=== PATIENT | female | born 1980 | race American Indian/Alaskan Native ===

== ENCOUNTER 2022-05-04 12:47 | Inpatient (IN) | payer MEDICAID ==
[~2022-05-04 12:47] MED LIST: miSOPROStol 200 MCG TAB VG ONE
[2022-05-04] MEDS ORDERED: LACTATED RINGERS 1,000 ML IV ONE (15:15)
[2022-05-04] MEDS ORDERED: fentaNYL 100 MCG/2 ML INJ IV ONE (16:00)
[2022-05-04] MEDS: LACTATED RINGERS 1,000 ML IV SCH ×2 (16:50→19:21)
[2022-05-04 18:18] LABS: Bilirubin,Urine NEG (Negative); Blood,Urine NEG (Negative); Color,Urine Amber (Yellow); Protein,Urine <15 mg/dL mg/dL (Negative)
[2022-05-04 18:20] LABS: Mucus,Urine FEW /HPF
[2022-05-04 18:21] LABS: Basophils % (Auto) 0.3 % (0.0-1.8); Eosinophils % (Auto) 0.6 % (0.0-4.3); Hematocrit 37.1 % (30.3-42.9); Mean Corpuscular HGB Conc 32 % (30-34); Mean Corpuscular Volume 85 fl (79-97); Monocytes # (Auto) 0.4 K/mm3 (0.0-0.8); Platelet Count 207 K/mm3 (140-440); Red Blood Count 4.39 M/mm3 (3.65-5.03); Red Cell Distribution Width 14.1 % (13.2-15.2)
[2022-05-04] MEDS ORDERED: ACETAMINOPHEN 325 MG TAB PO PRN (18:35)
[2022-05-04] MEDS ORDERED: fentaNYL 100 MCG/2 ML INJ IV PRN (18:35)
[2022-05-04] MEDS ORDERED: LIDOCAINE (2%) 20 MG/1 ML VIAL 20 ML MDV INFILTRATI ONE (18:35)
[2022-05-04] MEDS ORDERED: miSOPROStol 200 MCG TAB PR PRN (18:35)
[2022-05-04] MEDS ORDERED: TERBUTALINE 1 MG/1 ML INJ SUB-Q ONE (19:01)
--- NOTE | 2022-05-04 20:27 | History and Physical Report ---
History of Present Illness Date of examination: 05/04/22 Date of admission: 05/04/22 18:47 Chief complaint: contractions History of present illness: Pt is a 41 year old KAMALJIT 05/23/22 at 37w2d who presents with regular painful contractions since this morning. She received IV fluids and her contractions have not ceased. She has had care at [facility] since 5 wks complicated by three prior sections, advanced maternal age, abnormal pap smear, anemia, glucose intolerance, Lupus, fibroids and silent carrier for alpha thalassemia. She is GBS negative. She does not desire future fertility. section called at 7 pm, but no program technician available in until 11 pm. 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 smear, fibroids Family/Genetic History: hypertension Social history: no significant social history - Obstetrical History Expected Date of Delivery: 05/23/22 Actual Gestation: 37 Week(s) 2 Day(s) : 5 Para: 3 Hx # Term Pregnancies: 3 Number of Pregnancies: 0 Spontaneous Abortions: 1 Induced : 0 Number of Living Children: 3 Medications and Allergies Allergies Allergy/AdvReac Type Severity Reaction Status Date / Time No Known Allergies Allergy Unverified 05/04/22 13:22 Active Meds: Active Medications Acetaminophen (Acetaminophen 325 Mg Tab) 650 mg PO Q4H PRN PRN Reason: Pain, Mild (1-3) Fentanyl (Fentanyl 100 Mcg/2 Ml Inj) 100 mcg IV Q2H PRN PRN Reason: Pain,Severe (7-10) LABOR PAIN Lactated Ringer's (Lactated Ringers) 1,000 mls @ 125 mls/hr IV DIRECT STEFAN Last Admin: 05/04/22 19:21 Dose: 125 mls/hr Misoprostol (Misoprostol 200 Mcg Tab) 800 mcg DE ONCE PRN PRN Reason: Uterine Bleeding Review of Systems All systems: negative - Vital Signs Vital signs: Vital Signs Pulse Pulse Ox 83 100 05/04/22 13:11 05/04/22 13:11 Temp Pulse Resp BP Pulse Ox 98.4 F 89 16 104/50 99 05/04/22 14:00 05/04/22 20:25 05/04/22 14:50 05/04/22 20:10 05/04/22 20:25 - Physical Exam Breasts: Positive: deferred Abdomen: Positive: soft (gravid ) Uterus: Positive: enlarged (gravid ) Extremities: Positive: normal - Obstetrical FHR: auscultation normal Uterine Contraction Monitor Mode: External Cervical Dilatation: 0.5 Cervical Effacement Percentage: 50 station: -3 Uterine Contraction Pattern: Regular Uterine Tone Measurement Phase: Resting Uterine Contraction Intensity: Strong/Firm Results Result Diagrams: 05/04/22 Unknown Abnormal lab results 05/04/22 Range/Units Unknown MCH 27 L (28-32) pg Lymph # (Auto) 1.0 L (1.2-5.4) K/mm3 Seg Neutrophils % 76.1 H (40.0-70.0) % All other labs normal. Assessment and Plan A: IUP at 37w2d Latent Labor Previous x 3 Undesired Fertility Advanced maternal age Abnormal pap smear Anemia Glucose intolerance Lupus Fibroids Silent carrier for alpha thalassemia GBS negative P: Proceed with repeat section and bilateral tubal ligation when staffing available
[2022-05-04] MEDS ORDERED: LACTATED RINGERS 1,000 ML IV SCH (20:45)
[2022-05-04] MEDS ORDERED: OXYTOCIN DRIP 30 UNITS/500 ML BAG IV SCH (21:00)
[2022-05-04] MEDS ORDERED: METOCLOPRAMIDE 10 MG/2 ML INJ IV ONE (22:30)
[2022-05-04] MEDS ORDERED: FAMOTIDINE 20 MG/2 ML INJ IV ONE (22:30)
[2022-05-04] MEDS ORDERED: ceFAZolin/Water 2 GM/20 ML 2 GM/20 ML SYRINGE IV NR (22:30)
[2022-05-04] MEDS ORDERED: BICITRA ORAL LIQD 30ML PO ONE (22:30)
[2022-05-04] MEDS ORDERED: ePHEDrine SULFATE 50 MG/1 ML INJ ONE (22:49)
[2022-05-04] MEDS ORDERED: WATER FOR IRRIG STERILE 1,500 ML BOTTLE IR ONE (23:03)
[2022-05-04] MEDS ORDERED: SODIUM CHLORIDE 0.9% IRR 1,500 ML BOTTLE IR ONE (23:03)
[2022-05-05] MEDS ORDERED: ONDANSETRON 4 MG/2 ML INJ ONE (00:03)
[2022-05-05] MEDS ORDERED: SODIUM CHLORIDE 0.9% 100 ML ONE (00:03)
[2022-05-05] MEDS ORDERED: BUPIVACAINE/PF (0.5%) 5 MG/1 ML 30 ML VIAL INFILTRATI ONE (00:03)
[2022-05-05] MEDS ORDERED: TRANEXAMIC ACID 1,000 MG/10 ML ONE (00:03)
[2022-05-05] MEDS ORDERED: METHYLERGONOVINE MALEATE 0.2 MG/ML VIAL IM ONE (00:04)
--- NOTE | 2022-05-05 01:01 | Procedure Note ---
OB Delivery Note - Delivery Date of Delivery: 05/05/22 Surgeon: TATI SCHMIDT Estimated blood loss: other (1200 mL) - Section Preop diagnosis: repeat , desires sterilization Postop diagnosis: same section procedure: section, repeat low transverse, bilateral tubal ligation Disposition: PACU Complications: intra-op hemorrhage, uterine atony Narrative: Please see operative report - A at 1 minute: 8 at 5 minutes: 9 Gender: Female (2890g (6lb 6oz) @ 2323 pm)
--- NOTE | 2022-05-05 01:01 | Operative Report ---
Operative Report Operative Report: Date of procedure: May 04, 2022 Preoperative diagnosis: 1) IUP at 37w2d 2) Latent Labor 3) Previous x 3 4) Undesired Fertility Postoperative diagnosis: Same 5) Uterine Atony Procedure: 1) Repeat low transverse section 2) Bilateral tubal ligation via modified Lacona method Surgeon: Kailee Ayala M.D. Anesthesia: Regional Findings: 1) Viable female , Apgars 8 and 9, weight 2890, (6lb 6oz) in cephalic presentation. Meconium. 2) Normal appearing ovaries and tubes Estimated blood loss: 1200 mL Urine output: 100 mL, clear at the end of the procedure Drains: Greer to gravity Specimens: Tubal segments to pathology Medications: Methergine 0.2 mg IM, Misoprostol 800 mcg per rectum Complications: Counts correct x 3 Disposition: Stable to PACU Indication for procedure: Pt is a 34 year old at 37w2d with three prior sections who presents in latent labor. The decision was made to proceed with repeat section and bilateral tubal ligation. Operation in Detail: After the risks, benefits, alternatives and complications were explained to the patient she gave informed consent for the procedure. She was subsequently taken to the operating room where regional anesthesia was noted to be adequate. SCDs were noted to be in place and functioning. She was then placed in the dorsal supine position with leftward tilt and prepped and draped in a normal sterile fashion. heart tones were noted prior to incision. A timeout was performed. A Pfannenstiel skin incision was made with the knife and carried down to the layer of the fascia with the Bovie. The fascia was incised in the midline and the fascial incision was extended bilaterally with the Bovie. The fascial incision was then stretched. The rectus muscles were then in the midline and partially transected for adequate visualization. The peritoneum was then entered sharply between two Gracie clamps. The peritoneal incision was extended with good visualization of the bladder. The peritoneal incision was then stretched. An Igor retractor was placed. The bladder blade was placed. The vesicouterine peritoneum was grasped with smooth pick ups and incised with Metzenbaum scissors. A bladder flap was created and the bladder blade was replaced. A transverse incision was made with a knife in the lower uterine segment. The hysterotomy was stretched. The head was delivered without difficulty followed by delivery of the shoulders and body. was bulb s uctioned at delivery. The cord was clamped and cut and the was handed to NICU staff in attendance. Cord blood was collected. The placenta was then delivered manually. The uterus was exteriorized and cleared of all clots and debris. The hysterotomy was then reapproximated with 0 Monocryl in a running locked fashion. A second 0 Monocryl suture was used in an imbricated fashion. Multiple figure of eights of 2-0 chromic and 0 Vicryl were used to obtain hemostasis in the cernter of the hysterotomy. The hysterotomy was inspected and hemostasis was noted. Attention was then turned to the tubal ligation. The left tube was identified, grasped with a sharon and followed out to the fimbriae. The tube was suture ligated via a modified Lacona method using 0 plain suture. The intervening tubal segment was sent to pathology. The right tube was then identified, followed out to the fimbriae and suture ligated via a modified Lacona method using 0 plain suture. Hemostasis was noted. The gutters were irrigated and cleared of all clots and debris. The hysterotomy was again inspected and noted to be hemostatic. Surgicel was placed over the hysterotomy. The uterus was returned to the peritoneal cavity. The Igor retractor was removed. The peritoneum was reapproximated with 0 Monocryl in a running fashion incorporating the rectus muscles. Surgicel was placed over the rectus muscles. The fascia was reapproximated with 0-Vicryl in a running fashion. The skin was reapproximated with 4-0 Monocryl in a subcuticular fashion. The incision was then covered with a pressure dressing. The procedure was then ended. The patient tolerated the procedure well and was taken to the PACU in stable condition. All instrument, lap, and needle counts were correct 3.
--- NOTE | 2022-05-05 01:58 | Anesthesia Day of Surgery ---
Anesthesia Day of Surgery - Day of Surgery Patient Examined: Yes Patient H&P Reviewed: Yes Patient is NPO: Yes
--- NOTE | 2022-05-05 01:58 | Anesthesia Consultation ---
Anesthesia Consult and Med Hx Date of service: 05/04/22 - Airway Anesthetic Teeth Evaluation: Good ROM Head & Neck: Adequate Mental/Hyoid Distance: Adequate Mallampati Class: Class II Intubation Access Assessment: Good - Pulmonary Exam CTA: Yes - Cardiac Exam Cardiac Exam: RRR - Pre-Operative Health Status ASA Pre-Surgery Classification: ASA2 Proposed Anesthetic Plan: Spinal - Pulmonary Hx Asthma: No COPD: No Hx Pneumonia: No - Cardiovascular System Hx Hypertension: No - Central Nervous System Hx Seizures: No Hx Psychiatric Problems: No - Endocrine Hx Renal Disease: No Hx End Stage Renal Disease: No Hx Hypothyroidism: No Hx Hyperthyroidism: No - Hematic Hx Anemia: No Hx Sickle Cell Disease: No - Other Systems Hx Alcohol Use: No
--- NOTE | 2022-05-05 02:01 | Progress Note ---
Spinal Anesthesia Block - Spinal Anesthesia Block Performed by:: ELIANA CALDERON Procedure: Spinal anesthesia block is being performed for []. H&P, labs have been reviewed. Patient's questions and concerns have been answered. Informed consent has been performed. Timeout has was performed. Patient in sitting position on side of bed. Sterile prep and drape was performed. 3 mL 1% lidocaine skin wheal at L [3]-L [4]. Needle introducer advanced. 24-gauge spinal needle advanced, [+] CSF [-] blood. [-] Spinal dose was given. All needles removed. Patient tolerated procedure well.
--- NOTE | 2022-05-05 02:01 | Post Anesthesia Evaluation ---
- Post Anesthesia Evaluation Patient Participated: Yes Airway Patent: Yes Stable Respiratory Function: Yes Nausea/Vomiting: No Temp > 96.8F: Yes Pain Manageable: Yes Adequeate Hydration: Yes Anesthesia Complications: No Block Receding Appropriately: Yes
[2022-05-05] MEDS ORDERED: LANOLIN/ZINC/DIMETHICONE (LANSINOH) 7 GM TP PRN (03:08)
[2022-05-05] MEDS ORDERED: NALOXONE 0.4 MG/1 ML INJ IV PRN (03:08)
[2022-05-05] MEDS ORDERED: WITCH HAZEL/ GLYCERIN PAD TP PRN (03:08)
[2022-05-05] MEDS ORDERED: MORPHINE 4 MG/1 ML INJ IV PRN (03:08)
[2022-05-05] MEDS ORDERED: MORPHINE 2 MG/1 ML INJ IV PRN (03:08)
[2022-05-05] MEDS ORDERED: D5W/LACTATED RINGERS 1,000 ML IV SCH (03:08)
[2022-05-05] MEDS ORDERED: oxyCODONE /ACETAMINOPHEN 5-325MG TAB PO PRN (03:08)
[2022-05-05] MEDS ORDERED: OXYTOCIN DRIP 30 UNITS/500 ML BAG IV SCH (03:08)
[2022-05-05] MEDS ORDERED: SIMETHICONE 80 MG CHEW TAB PO PRN (03:08)
[2022-05-05] MEDS ORDERED: ONDANSETRON 4 MG/2 ML INJ IV PRN (03:08)
[2022-05-05] MEDS: IBUPROFEN 800 MG TAB PO PRN (06:00)
[2022-05-05] MEDS ORDERED: ceFAZolin/NS 1 GM/50 ML 1 GM/50 ML BAG IV SCH (06:30)
[2022-05-05] MEDS: ceFAZolin/NS 1 GM/50 ML 1 GM/50 ML BAG IV SCH ×2 (10:18→17:59)
[2022-05-05] MEDS: KETOROLAC 30 MG/1 ML INJ IV SCH ×2 (12:27→17:59)
[2022-05-05 16:48] LABS: Hematocrit 36.4 % (30.3-42.9); Hemoglobin 12.1 gm/dl (10.1-14.3)
[2022-05-06] MEDS ORDERED: MEASLES, MUMPS & RUBELLA 12,500 UNIT/0.5 ML VACCINE SUB-Q ONE (01:28)
[2022-05-06] MEDS ORDERED: TETANUS,DIPH,PERTUSS(ACELL) VACCINE 0.5 ML SYRINGE IM ONE (06:00)
[2022-05-06] MEDS: IBUPROFEN 800 MG TAB PO PRN ×2 (06:58→18:15)
--- NOTE | 2022-05-06 09:45 | Progress Note ---
Assessment and Plan POD 1 s/p rcs. Pt doing well. in NICU. Pt is ok for discharge on tomorrow if able to go. Encourage ambulation. Continue routine care. Subjective - Subjective Date of service: 05/06/22 Patient reports: appetite normal, voiding normally, pain well controlled, flatus, ambulating normally : in NICU Objective - Vital Signs Latest vital signs: Vital Signs Temp Pulse Resp BP BP Pulse Ox Pulse Ox 05/06/22 08:10 98 05/06/22 08:05 97.9 F 55 L 20 107/54 99 05/06/22 06:58 18 05/06/22 02:15 96.8 F L 59 L 20 111/62 99 05/05/22 22:53 18 05/05/22 21:44 97.9 F 59 L 18 107/56 99 05/05/22 20:10 98 05/05/22 16:21 98.0 F 61 20 123/60 100 05/05/22 12:08 97.9 F 65 20 118/65 100 Intake and Output 05/05/22 05/06/22 05/06/22 22:59 06:59 14:59 Intake Total 240 480 320 Output Total 300 Balance -60 480 320 Intake: Oral 240 320 Intake, Free Water 480 Output: Urine 300 Void 300 Other: Total, Intake Amount 240 320 Total, Output Amount 300 # Voids Void 2 1 - Exam Cardiovascular: Present: Regular rate, Normal S1, Normal S2 Lungs: Present: Clear to auscultation, Normal air movement Abdomen: Present: normal appearance, soft, normal bowel sounds Uterus: Present: normal, firm Extremities: Present: normal Incision: Present: normal, dry, intact, dressed
--- NOTE | 2022-05-06 09:49 | Discharge Summary ---
Providers - Providers Date of Admission: 05/04/22 20:43 Date of discharge: 05/07/22 Attending physician: TATI SCHMIDT 05/05/22 03:08 Consult to Chemical Sales Representative [CONS] Routine Reason For Exam: Primary care physician: REBECCA SOLORZANO Hospitalization Reason for admission: section Delivery: Procedure: repeat low transverse Incision: normal, dry, intact, dressed Viola baby: female Condition at discharge: Good Disposition: 30 STILL A PATIENT Plan - Discharge Medications Prescriptions: Docusate Sodium [Colace] 100 mg PO BID #60 capsule Ferrous Sulfate [Feosol 325 MG tab] 325 mg PO BID #60 tablet Ibuprofen [Motrin 800 MG tab] 800 mg PO Q6H PRN #40 tablet PRN Reason: Pain, Moderate (4-6) oxyCODONE /ACETAMINOPHEN [Percocet 5/325 mg] 2 tab PO Q4H PRN #40 tablet PRN Reason: Pain, Moderate (4-6) - Provider Discharge Summary Additional instructions: [] Smoking cessation referral if applicable(refer to patient education folder for contact #) [] Refer to [facility] Booklet Call your doctor immediately for: * Fever > 100.5 * Heavy vaginal bleeding ( >1 pad per hour) * Severe persistent headache * Shortness of breath * Reddened, hot, painful area to leg or breast * Drainage or odor from incision. * Keep incision clean and dry at all times and follow doctor's instructions regarding bathing/showering - Follow up plan Follow up: TATI SCHMIDT MD [Staff Physician] - 14 Days
--- NOTE | 2022-05-06 14:14 | Post Anesthesia Evaluation ---
- Post Anesthesia Evaluation Patient Participated: Yes Airway Patent: Yes Stable Respiratory Function: Yes Nausea/Vomiting: No Temp > 96.8F: Yes Pain Manageable: Yes Adequeate Hydration: Yes Anesthesia Complications: No Block Receding Appropriately: Yes Patient on Ventilator: No
[2022-05-07 17:12] VITALS: BP 125/44
== END 2022-05-07 17:25 | disposition home or self-care (01) | DRG 765 ==
LOC: TRG 12:47 → APU 12:48 → TRG 18:43 → EDBD 18:47 → UNDOADMIN 18:47 → APU 18:47 → EDBD 20:43 → APU 20:43 → LD 05-05 03:11 → OB 05-05 07:41
PROVIDERS: ADMIT Obstetrics & Gynecology; ATTEND Obstetrics & Gynecology
PROC: 10D00Z1 Extraction of Products of Conception, Low, Open Approach (ICD-10-PCS; principal; 2022-05-05)
PROC: 0UB70ZZ Excision of Bilateral Fallopian Tubes, Open Approach (ICD-10-PCS; 2022-05-05)
PROC: 3E0234Z Introduction of Serum, Toxoid and Vaccine into Muscle, Percutaneous Approach (ICD-10-PCS; 2022-05-06)
DX: O99.02 Anemia complicating childbirth (principal); O72.1 Other immediate postpartum hemorrhage; Z20.822 Contact with and (suspected) exposure to COVID-19; Z23 Encounter for immunization; Z37.0 Single live birth; M32.9 Systemic lupus erythematosus, unspecified; Z3A.37 37 weeks gestation of pregnancy; O99.814 Abnormal glucose complicating childbirth; O34.13 Maternal care for benign tumor of corpus uteri, third trimester; D25.9 Leiomyoma of uterus, unspecified; O77.0 Labor and delivery complicated by meconium in amniotic fluid; O34.211 Maternal care for low transverse scar from previous cesarean delivery; D56.0 Alpha thalassemia
CPT/HCPCS: 31720; 36415; 81001; 85014; 85018; 85025; 86850; 86900; 86901; 88302; 96366; G0378; J3490; J7060; J7121; J0690; J1885; J2405; J2765; J3010; J3105; J7120; U0003

== ENCOUNTER 2022-05-14 09:32 | Inpatient (IN) | payer MEDICAID ==
[2022-05-14] MEDS ORDERED: SODIUM CHLORIDE 0.9% 1000 ML 1,000 ML IV ONE (10:18)
[2022-05-14 10:52] LABS: Bilirubin,Urine NEG (Negative); Blood,Urine MOD (Negative); Color,Urine Yellow (Yellow); Protein,Urine <15 mg/dL mg/dL (Negative); Urobilinogen,Urine < 2.0 mg/dL (<2.0)
[2022-05-14 11:01] LABS: Mucus,Urine FEW /HPF
[2022-05-14 11:05] LABS: INR 1.04 (0.87-1.13)
[2022-05-14 11:12] LABS: Blood Urea Nitrogen 10 mg/dL (7-17); Calcium 8.4 mg/dL (8.4-10.2); Hemolysis Index 47
[2022-05-14 11:16] LABS: BUN/Creatinine Ratio 17
[2022-05-14 11:32] LABS: Basophils % (Auto) 0.4 % (0.0-1.8); Eosinophils % (Auto) 0.4 % (0.0-4.3); Hematocrit 28.8 % (30.3-42.9); Lymphocytes # (Auto) 0.8 K/mm3 (1.2-5.4); Lymphocytes % (Auto) 8.6 % (13.4-35.0); Mean Corpuscular HGB Conc 31 % (30-34); Mean Corpuscular Volume 85 fl (79-97); Monocytes # (Auto) 0.3 K/mm3 (0.0-0.8); Monocytes % (Auto) 3.5 % (0.0-7.3); Platelet Count 227 K/mm3 (140-440)
--- NOTE | 2022-05-14 12:15 | Emergency Department Report ---
ED General Adult HPI - General Chief complaint: Vaginal Bleeding Stated complaint: DELIVERED 10 DAYS AGO/VAGINAL BLEEDING PUI?: No Time Seen by Provider: 05/14/22 10:11 Source: patient, EMS Mode of arrival: Stretcher Limitations: No Limitations - History of Present Illness Initial comments: PT ARRIVING FROM HOME, REPORTS ABNORMAL VAG BLEEDING THAT STARTED THIS MORNING. X10 DAYS. , NO COMPLICATIONS. -: Sudden, hour(s) Location: pelvis, genitals Associated Symptoms: malaise, nausea/vomiting, weakness. denies: denies other symptoms, confusion, chest pain, cough - Related Data Previous Rx's Medication Instructions Recorded Last Taken Type Docusate Sodium [Colace] 100 mg PO BID #60 capsule 05/06/22 Unknown Rx Ferrous Sulfate [Feosol 325 MG tab] 325 mg PO BID #60 tablet 05/06/22 Unknown Rx Ibuprofen [Motrin 800 MG tab] 800 mg PO Q6H PRN #40 tablet 05/06/22 Unknown Rx oxyCODONE /ACETAMINOPHEN [Percocet 2 tab PO Q4H PRN #40 tablet 05/06/22 Unknown Rx 5/325 mg] Allergies Allergy/AdvReac Type Severity Reaction Status Date / Time No Known Allergies Allergy Verified 05/14/22 09:54 ED Review of Systems ROS: Stated complaint: DELIVERED 10 DAYS AGO/VAGINAL BLEEDING Other details as noted in HPI Constitutional: denies: chills, fever Eyes: denies: eye pain, eye discharge, vision change ENT: denies: ear pain, throat pain Respiratory: denies: cough, shortness of breath, wheezing Cardiovascular: denies: chest pain, palpitations Endocrine: no symptoms reported Gastrointestinal: denies: abdominal pain, nausea, diarrhea Genitourinary: denies: urgency, dysuria, discharge Musculoskeletal: denies: back pain, joint swelling, arthralgia Skin: denies: rash, lesions Neurological: denies: headache, weakness, paresthesias Psychiatric: denies: anxiety, depression Hematological/Lymphatic: denies: easy bleeding, easy bruising ED Past Medical Hx - Past Medical History Previous Medical History?: Yes Hx Hypertension: No Hx Congestive Heart Failure: No Hx Diabetes: No Hx Deep Vein Thrombosis: No Hx Renal Disease: No Hx Sickle Cell Disease: No Hx Seizures: No Hx Asthma: No Hx COPD: No Hx HIV: No Additional medical history: Lupus - Surgical History Past Surgical History?: Yes Additional Surgical History: csection - Social History Smoking Status: Never Smoker Substance Use Type: None - Medications Home Medications: Home Medications Medication Instructions Recorded Confirmed Last Taken Type Docusate Sodium [Colace] 100 mg PO BID #60 capsule 05/06/22 Unknown Rx Ferrous Sulfate [Feosol 325 MG tab] 325 mg PO BID #60 tablet 05/06/22 Unknown Rx Ibuprofen [Motrin 800 MG tab] 800 mg PO Q6H PRN #40 tablet 05/06/22 Unknown Rx oxyCODONE /ACETAMINOPHEN [Percocet 2 tab PO Q4H PRN #40 tablet 05/06/22 Unknown Rx 5/325 mg] ED Physical Exam - General Limitations: No Limitations General appearance: anxious, in distress - Head Head exam: Present: atraumatic, normocephalic - Eye Eye exam: Present: normal appearance - ENT ENT exam: Present: mucous membranes moist - Neck Neck exam: Present: normal inspection - Respiratory Respiratory exam: Present: normal lung sounds bilaterally. Absent: respiratory distress - Cardiovascular Cardiovascular Exam: Present: normal rhythm, tachycardia. Absent: systolic mu rmur, diastolic murmur, rubs, gallop - GI/Abdominal GI/Abdominal exam: Present: tenderness, normal bowel sounds - Speculum exam: Present: vaginal bleeding, tissue - Extremities Exam Extremities exam: Present: normal inspection - Back Exam Back exam: Present: normal inspection - Neurological Exam Neurological exam: Present: alert, oriented X3 - Psychiatric Psychiatric exam: Present: normal affect, normal mood - Skin Skin exam: Present: warm, dry, intact, normal color. Absent: rash ED Course Vital Signs 05/14/22 05/14/22 05/14/22 09:53 10:22 10:24 Temperature 98.2 F Pulse Rate 98 H 73 Respiratory 18 22 22 Rate Blood Pressure Blood Pressure 116/74 [Left] O2 Sat by Pulse 98 98 Oximetry 05/14/22 05/14/22 05/14/22 10:31 10:46 11:17 Temperature Pulse Rate 71 79 Respiratory 20 16 Rate Blood Pressure 104/38 104/38 99/40 Blood Pressure [Left] O2 Sat by Pulse 91 Oximetry 05/14/22 05/14/22 11:31 11:45 Temperature Pulse Rate 85 100 H Respiratory 25 H 25 H Rate Blood Pressure 106/32 106/32 Blood Pressure [Left] O2 Sat by Pulse 100 100 Oximetry ED Medical Decision Making - Lab Data Result diagrams: 05/14/22 10:37 05/14/22 10:37 - Radiology Data Radiology results: report reviewed, image reviewed - Medical Decision Making 2 Large IV bore paced fluids running , external exam showed active bleeding , packed with 4 by $ , US shwoed enlarged uterus, spoke with dr Foster, came to bedside will transfuse and take her to OR Critical care attestation.: If time is entered above; I have spent that time in minutes in the direct care of this critically ill patient, excluding procedure time. ED Disposition Clinical Impression: bleeding, Hypotension Disposition: ADMITTED INPATIENT Is pt being admited?: Yes Does the pt Need Aspirin: No Condition: Fair Referrals: PRIMARY CARE, [Primary Care Provider] - 3-5 Days
[2022-05-14] MEDS ORDERED: ceFAZolin/Water 2 GM/20 ML 2 GM/20 ML SYRINGE IV NR (13:00)
--- NOTE | 2022-05-14 13:09 | History and Physical Report ---
History of Present Illness Date of examination: 05/14/22 Chief complaint: vaginal bleeding History of present illness: Pt is a 41 year old female POD#10 s/p repeat section and bilateral tubal ligation on 05/04/22, discharge home on POD #3 with an uncomplicated postoperative course who reports she was doing well at home until early this morning when she woke from her sleep in a pool of blood. She denies heavy lifting or deviating from her postoperative instructions. She was brought to the ED by EMS. The ED physician notes heavy vaginal bleeding. He reports clearing out the clots, and packing the vagina,as well as placing a thompson catheter. She had a pelvic ultrasound that was suspicious for retained products. 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, fibroids Family/Genetic History: hypertension Social history: no significant social history - Obstetrical History : 5 Para: 4 Hx # Term Pregnancies: 4 Number of Pregnancies: 0 Spontaneous Abortions: 1 Induced : 0 Number of Living Children: 4 Medications and Allergies Allergies Allergy/AdvReac Type Severity Reaction Status Date / Time No Known Allergies Allergy Verified 05/14/22 09:54 Home Medications Medication Instructions Recorded Confirmed Last Taken Type Docusate Sodium [Colace] 100 mg PO BID #60 capsule 05/06/22 Unknown Rx Ferrous Sulfate [Feosol 325 MG tab] 325 mg PO BID #60 tablet 05/06/22 Unknown Rx Ibuprofen [Motrin 800 MG tab] 800 mg PO Q6H PRN #40 tablet 05/06/22 Unknown Rx oxyCODONE /ACETAMINOPHEN [Percocet 2 tab PO Q4H PRN #40 tablet 05/06/22 Unknown Rx 5/325 mg] Active Meds: Active Medications Lactated Ringer's (Lactated Ringers) 1,000 mls @ 75 mls/hr IV DIRECT STEFAN Cefazolin Sodium (Ancef/Sterile Water 2 Gm/20 Ml) 2 gm in 20 mls @ 80 mls/hr IV PREOP NR; Protocol Stop: 05/15/22 23:59 Review of Systems All systems: negative Constitutional: fatigue, weakness - Vital Signs Vital signs: Vital Signs Temp Pulse Resp BP Pulse Ox 98.2 F 98 H 18 116/74 98 05/14/22 09:53 05/14/22 09:53 05/14/22 09:53 05/14/22 09:53 05/14/22 09:53 Temp Pulse Resp BP Pulse Ox 98.2 F 104 H 14 112/40 98 05/14/22 09:53 05/14/22 12:31 05/14/22 12:31 05/14/22 12:31 05/14/22 12:31 - Physical Exam Breasts: Positive: deferred Abdomen: Positive: soft Uterus: Positive: enlarged Extremities: Positive: normal Results Result Diagrams: 05/14/22 10:37 05/14/22 10:37 Abnormal lab results 05/14/22 05/14/22 Range/Units 10:37 10:44 RBC 3.40 L (3.65-5.03) M/mm3 Hgb 9.0 L (10.1-14.3) gm/dl Hct 28.8 L (30.3-42.9) % MCH 27 L (28-32) pg RDW 13.0 L (13.2-15.2) % Lymph % (Auto) 8.6 L (13.4-35.0) % Lymph # (Auto) 0.8 L (1.2-5.4) K/mm3 Seg Neutrophils % 87.1 H (40.0-70.0) % Seg Neutrophils # 8.6 H (1.8-7.7) K/mm3 HCG, Quant 142.5 H (0-4) mIU/mL All other labs normal. Assessment and Plan A: Hemorrhage Acute Blood Loss Anemia Lupus P: Proceed with exam under anesthesia, abdominal hysterectomy and other indicated procedures as soon as staffing available as they are in another surgery Type and Screen, Type and Cross 2 units PRBCs Closely monitor clinical status
[2022-05-14] MEDS ORDERED: ONDANSETRON 4 MG/2 ML INJ ONE (13:37)
[2022-05-14] MEDS ORDERED: ROCURONIUM 50 MG/5 ML INJ IV ONE (13:37)
[2022-05-14] MEDS ORDERED: MIDAZOLAM 2 MG/2 ML INJ ONE (13:37)
[2022-05-14] MEDS ORDERED: propofoL 200 MG/20 ML VIAL IV ONE (13:38)
[2022-05-14] MEDS ORDERED: fentaNYL 100 MCG/2 ML INJ ONE (13:38)
--- NOTE | 2022-05-14 14:09 | XRay Report ---
CHEST 1 VIEW 05/14/2022 1:52 PM INDICATION / CLINICAL INFORMATION: Dyspnea. COMPARISON: None available. FINDINGS: SUPPORT DEVICES: None. HEART / MEDIASTINUM: The heart size and pulmonary vasculature are normal. LUNGS / PLEURA: No significant pulmonary or pleural abnormality. No pneumothorax. ADDITIONAL FINDINGS: No significant additional findings. IMPRESSION: No acute findings. Signer Name: Marco A El MD Signed: 05/14/2022 2:04 PM Workstation Name: [id number]
[2022-05-14] MEDS ORDERED: SODIUM CHLORIDE 0.9% 500 ML 500 ML IV ONE (14:30)
[2022-05-14] MEDS ORDERED: SODIUM CHLORIDE 0.9% IRR 1,500 ML BOTTLE IR ONE (14:42)
[2022-05-14] MEDS ORDERED: METHYLENE BLUE 50 MG/10 ML AMP ONE (14:46)
[2022-05-14] MEDS ORDERED: ePHEDrine SULFATE 50 MG/1 ML INJ ONE (14:52)
[2022-05-14 15:01] LABS: Mean Corpuscular HGB Conc 32 % (30-34); Mean Corpuscular Volume 86 fl (79-97); Platelet Count 141 K/mm3 (140-440); Red Blood Count 1.89 M/mm3 (3.65-5.03); Red Cell Distribution Width 13.4 % (13.2-15.2)
[2022-05-14 15:17] LABS: Hematocrit 16.2 % (30.3-42.9); Hemoglobin 5.2 gm/dl (10.1-14.3)
[2022-05-14] MEDS ORDERED: METHYLENE BLUE 50 MG/10 ML AMP INTRA-URET ONE (15:25)
[2022-05-14] MEDS ORDERED: SODIUM CHLORIDE 0.9% 500 ML IVPB IRRIGATION ONE (15:26)
[2022-05-14 15:42] LABS: INR 1.51 (0.87-1.13)
[2022-05-14 15:43] LABS: Partial Thromboplastin Time 58.9 Sec. (24.2-36.6)
[2022-05-14] MEDS ORDERED: ALBUMIN HUMAN 5% (12.5 GM/250 ML) INJ IV ONE (15:51)
[2022-05-14] MEDS ORDERED: SUGAMMADEX SODIUM 200 MG/2 ML VIAL IV ONE (15:51)
[2022-05-14] MEDS ORDERED: HYDROmorphone 0.5 MG/0.5 ML INJ ONE (16:04)
--- NOTE | 2022-05-14 16:21 | Anesthesia Day of Surgery ---
Anesthesia Day of Surgery - Day of Surgery Patient Examined: Yes Patient H&P Reviewed: Yes Patient is NPO: No (Ice chips in ER)
--- NOTE | 2022-05-14 16:23 | Anesthesia Consultation ---
Anesthesia Consult and Med Hx Date of service: 05/14/22 - Airway Mental/Hyoid Distance: Adequate Mallampati Class: Class II Intubation Access Assessment: Good - Pulmonary Exam CTA: Yes - Cardiac Exam Cardiac Exam: RRR - Pre-Operative Health Status ASA Pre-Surgery Classification: ASA3, Emergency Proposed Anesthetic Plan: General - Pulmonary Hx Asthma: No COPD: No Hx Pneumonia: No - Cardiovascular System Hx Hypertension: No - Central Nervous System Hx Seizures: No Hx Psychiatric Problems: No - Endocrine Hx Renal Disease: No Hx End Stage Renal Disease: No Hx Hypothyroidism: No Hx Hyperthyroidism: No - Hematic Hx Anemia: No Hx Sickle Cell Disease: No - Other Systems Hx Alcohol Use: No - Additional Comments Anesthesia Medical History Comments: LUPUS. C/S 10dys ago
[2022-05-14] MEDS ORDERED: HYDROmorphone 0.5 MG/0.5 ML INJ IV PRN ×2 (16:30)
[2022-05-14] MEDS ORDERED: ONDANSETRON 4 MG/2 ML INJ IV PRN ×2 (16:30→17:36)
--- NOTE | 2022-05-14 16:41 | Ultrasound Report ---
ULTRASOUND PELVIS INDICATION: Vaginal bleeding. TECHNIQUE: Transabdominal. Duplex Color Doppler used: Yes. COMPARISON: None available FINDINGS: Uterus: Enlarged Size: 16.4 x 10.7 x 11.8 cm cm. Endometrial complex: Markedly thickened and heterogeneous with endometrial fluid Mass lesions: None. Additional findings: None. Right Ovary --not visualized secondary to bowel gas Left Ovary--not visualized secondary to bowel gas Urinary Bladder: Normal. Free Fluid: None. Additional Findings: None. IMPRESSION: 1. Enlarged uterus. 2. Thickened heterogeneous endometrial stripe with endometrial fluid. 3. Neither ovary visualized sonographically Thickened endometrial complex in a uterus. It is difficult to distinguish a [place] containing clots from retained products of conception. Clinical correlation is recommended. Signer Name: Eric Payan MD Signed: 05/14/2022 4:36 PM Workstation Name: [id number]
[2022-05-14] MEDS ORDERED: PHENYLEPHRINE/NS 1,000 MCG/10 ML SYRINGE (OR USE) IV ONE (16:43)
[2022-05-14] MEDS ORDERED: dexAMETHasone 4 MG/ML VIAL ONE (17:22)
[2022-05-14] MEDS ORDERED: BUPIVACAINE/PF (0.25%) 2.5 MG/ML 30 ML VIAL INFILTRATI ONE (17:22)
[2022-05-14] MEDS ORDERED: LIDOCAINE (1%) 10 MG/1 ML VIAL 20 ML MDV ONE (17:28)
[2022-05-14] MEDS ORDERED: SODIUM CHLORIDE 0.9% 500 ML 500 ML IV SCH (17:29)
--- NOTE | 2022-05-14 17:34 | Post Operative Note ---
Pre-op diagnosis: Hemorrhage, Acute Blood Loss Anemia Post-op diagnosis: same Findings: 1) Enlarged, boggy, pale uterus 20-22 wks sized filled with organized clots 2) Normal appearing ovaries, evidence of tubal ligation Procedure: Supracervical Abdominal Hysterectomy Anesthesia: CHANELLE Surgeon: TATI SCHMIDT Returned Goods Receiving Clerk: EDILBERTO KELSEY Estimated blood loss: other (1250 mL (750 EBL, ~ 500 mL clots inside the uterus)) Pathology: list (uterus, clots) Specimen disposition: to lab Condition: stable Disposition: PACU
[2022-05-14] MEDS ORDERED: NALOXONE 0.4 MG/1 ML INJ IV PRN (17:36)
[2022-05-14] MEDS ORDERED: MORPHINE 2 MG/1 ML INJ IV PRN (17:36)
[2022-05-14] MEDS ORDERED: MORPHINE 4 MG/1 ML INJ IV PRN (17:36)
--- NOTE | 2022-05-14 17:36 | Operative Report ---
Operative Report Operative Report: Date of procedure: May 14, 2022 Preoperative Diagnosis: 1) Status post repeat section on 05/04/22 2) U terine Atony 3) Hemorrhage 4) Acute Blood Loss Anemia Postoperative diagnosis: Same Procedure: Supracervical abdominal hysterectomy Surgeon: Kailee Ayala M.D. House Coordinator: Brinda Adair M.D. Anesthesia: General endotracheal anesthesia Findings: 1) Boggy, pale 20-22 wk sized uterus filled with dark colored organized blood clots 2) Normal appearing ovaries, evidence of tubal ligation Estimated blood loss: 1250 mL (EBL 750 mL with estimate of 500 mL of organized clots from inside the uterus) Crystalloid: 2L Normal Saline Colloid: 700 mL Packed Red Blood Cells, 250 mL Fresh Frozen Plasma, 250 mL Albumin Urine: 460 mL, clear at the end of procedure Drains: None Specimens: Uterus and clots to pathology Complications: None. Counts correct 3 Disposition: Stable to PACU Indication for procedure: Patient is a 41 year old female who is POD#10 s/p repeat section and bilateral tubal ligation who presents with acute onset of heavy vaginal bleeding, uterine atony, and symptomatic anemia. The decision was made to proceed with hysterectomy. Operation in detail: After the risks, benefits, alternatives and complications of the procedure were explained to the patient she gave informed consent for the procedure. She was subsequently taken to the operating room and placed in the dorsal supine position. SCDs were noted to be in place and functioning. General anesthesia was then induced without difficulty. An exam under anesthesia revealed 3 Ray- Tecs in the vagina from previous vaginal packing that were removed. The patient was then prepped and draped in a normal sterile fashion including Greer catheter placement. A time out was performed. The subcuticular stitch from the previously created Pfannenstiel incision was incised and the skin incision was opened. The fascial incision was reopened by cutting the sutures with scissors. At this time, the uterus was delivered through the incision and was noted to be enlarged, atonic and pale. The Enseal device was used to sequentially clamp and to ligate the anterior leaf of the broad ligament was dissected to the midline of the vesicouterine peritoneum. A window was created in an avascular area of the posterior leaf. The ovarian ligament and fallopian tube were transected. Attention was then turned to the right side where the round ligament was identified and ligated with the Enseal. Again the anterior leaf of the broad ligament was dissected to the midline of the vesicouterine peritoneum. The vesicouterine peritoneum was noted to be poorly delineated due to history of four sections. In the interest of patient safety to attempt to avoid bladder or urethral injury, the decision was made to proceed with supracervical hysterectomy. The uterus was excised with the Enseal and sent to pathology. The bladder was back filled with 240 mL of Methylene blue with no egress of fluid into the operative field. A small uterine stump remains superior to the cervix. Hemostasis of the posterior edge of the stump was obtained with figure of eights of 0-Vicryl. THe remaining endometrial tissue was cauterized with roller ball cautery. Surgicel powder was placed over the remaining endometrium. Figure of eights of 0-Vicryl were then used to reapproximate the anterior and posterior edges of the remaining tissue. The pelvis was then irrigated and cleared of all clots and debris. Surgicel Powder was placed over the remaining pedicles. All laps and instruments were removed from the abdomen. Hemostasis was noted. The fascia was then reapproximated with 0 PDS in a running fashion. The skin was reapproximated with benedict. The incision was then covered with a pressure dressing. The procedure was then ended. The patient was extubated without difficulty, and taken to the PACU. All instrument, lap, and needle counts were correct 3. The patient will be admitted to the ICU after she is observed in the PACU.
[2022-05-14 19:01] LABS: Hematocrit 27.8 % (30.3-42.9); Hemoglobin 9.3 gm/dl (10.1-14.3)
[2022-05-14 19:12] LABS: INR 1.25 (0.87-1.13)
[2022-05-14 19:13] LABS: Partial Thromboplastin Time 34.4 Sec. (24.2-36.6)
[2022-05-14] MEDS: LACTATED RINGERS 1,000 ML IV SCH (20:49)
[2022-05-14] MEDS: ceFAZolin/NS 1 GM/50 ML 1 GM/50 ML BAG IV SCH (20:49)
[2022-05-14 20:52] LABS: INR 1.29 (0.87-1.13)
[2022-05-15] MEDS: ceFAZolin/NS 1 GM/50 ML 1 GM/50 ML BAG IV SCH (05:08)
[2022-05-15 05:33] LABS: Hematocrit 22.6 % (30.3-42.9); Hemoglobin 7.7 gm/dl (10.1-14.3)
[2022-05-15] MEDS: ACETAMINOPHEN 325 MG TAB PO PRN ×2 (05:56→20:21)
[2022-05-15 06:49] LABS: INR 1.21 (0.87-1.13)
[2022-05-15 06:50] LABS: Partial Thromboplastin Time 28.8 Sec. (24.2-36.6)
--- NOTE | 2022-05-15 07:44 | Progress Note ---
Assessment and Plan A: POD#1 S/P supracervical abdominal hysterectomy Acute Blood Loss Anemia/DIC s/p 3 units PRBCs, 2 units FFP, 1 unit of albumin Lupus P: Consider transfer to step down unit later today Closely monitor clinical status Subjective - Subjective Date of service: 05/15/22 Principal diagnosis: POD#1 s/p supracerivcal abdominal hysterectomy, DIC Interval history: Pt is somnolent this morning, but is alert and oriented. Thompson in place with clear urine. Minimal vaginal spotting overnight. Patient reports: pain well controlled, no voiding normally (thompson in place ), no ambulating normally (SCDs in place ) Objective - Vital Signs Latest vital signs: Vital Signs Temp Pulse Resp BP BP Pulse Ox 05/15/22 07:10 98.2 F 05/15/22 06:01 80 18 119/55 99 05/15/22 05:00 84 23 132/67 97 05/15/22 04:00 99.1 F 75 25 H 139/67 98 05/15/22 03:00 76 24 137/64 99 05/15/22 02:00 87 19 144/67 99 05/15/22 01:00 71 24 145/64 99 05/15/22 00:00 99.4 F 68 18 145/66 99 05/14/22 23:30 99.3 F 05/14/22 23:29 71 24 138/68 99 05/14/22 23:21 73 19 142/60 98 05/14/22 23:11 72 24 142/60 100 05/14/22 23:01 69 24 142/60 99 05/14/22 22:31 70 14 137/64 99 05/14/22 22:00 71 22 137/64 98 05/14/22 21:41 69 24 142/60 99 05/14/22 21:38 99.2 F 79 20 136/65 99 05/14/22 21:31 79 21 133/68 99 05/14/22 21:23 99.0 F 79 21 133/68 98 05/14/22 21:03 99.0 F 05/14/22 21:00 77 20 138/64 98 05/14/22 20:31 77 19 144/70 100 05/14/22 20:15 83 20 144/70 100 05/14/22 20:00 86 20 136/68 100 05/14/22 19:45 84 20 144/70 100 05/14/22 19:31 85 19 144/70 100 05/14/22 19:15 88 20 144/70 100 05/14/22 19:00 86 20 144/70 100 05/14/22 18:45 85 17 137/75 100 05/14/22 18:40 100 05/14/22 18:25 81 20 141/64 100 05/14/22 18:15 98.9 F 81 20 149/76 100 05/14/22 18:00 85 20 138/69 100 05/14/22 17:45 86 20 141/66 100 05/14/22 17:30 80 21 145/71 100 05/14/22 17:20 83 20 148/67 100 05/14/22 17:15 80 20 152/73 100 05/14/22 17:10 98.2 F 81 23 145/63 100 05/14/22 14:50 125/54 92 05/14/22 13:45 102 H 32 H 111/56 99 05/14/22 13:44 102.9 F H 05/14/22 13:31 102 H 14 124/60 98 05/14/22 13:15 99 H 32 H 115/48 96 05/14/22 13:01 95 H 14 114/54 97 05/14/22 12:45 95 H 23 116/56 98 05/14/22 12:31 104 H 14 112/40 98 05/14/22 12:15 110 H 21 122/47 98 05/14/22 12:01 92 H 17 88/34 99 05/14/22 11:45 100 H 25 H 106/32 100 05/14/22 11:31 85 25 H 106/32 100 05/14/22 11:17 99/40 05/14/22 10:46 79 16 104/38 05/14/22 10:31 71 20 104/38 91 05/14/22 10:24 22 98 05/14/22 10:22 73 22 05/14/22 09:53 98.2 F 98 H 18 116/74 98 Intake and Output 05/14/22 05/15/22 05/15/22 22:59 06:59 14:59 Intake Total 850 291 Output Total 1010 900 Balance -160 -609 Intake: IV 850 ANCEF/NS 1 GM/50 ML 1 gm 50 In 50 ml @ 100 mls/hr IV Q8H [facility] Rx#:[id number] Blood Product 0 291 Fresh Frozen Plasma 0 291 Thawed Unit [id number] Output: Urine 1010 900 Indwelling Catheter 300 900 Other: Total, Output Amount 300 500 Voiding Method Indwelling Catheter Indwelling Catheter Weight 76.657 kg - Exam Breasts: Present: deferred Abdomen: Present: soft, other (dressing clean) Extremities: Present: edema (trace) Incision: Present: dressed - Labs Labs: Abnormal lab results 05/14/22 05/14/22 05/14/22 Range/Units 10:37 10:37 10:44 WBC (4.5-11.0) K/mm3 RBC 3.40 L (3.65-5.03) M/mm3 Hgb 9.0 L (10.1-14.3) gm/dl Hct 28.8 L (30.3-42.9) % MCH 27 L (28-32) pg RDW 13.0 L (13.2-15.2) % Lymph % (Auto) 8.6 L (13.4-35.0) % Lymph # (Auto) 0.8 L (1.2-5.4) K/mm3 Seg Neutrophils % 87.1 H (40.0-70.0) % Seg Neutrophils # 8.6 H (1.8-7.7) K/mm3 PT (12.2-14.9) Sec. INR (0.87-1.13) APTT (24.2-36.6) Sec. Fibrinogen (211-480) mg/dl HCG, Quant 142.5 H (0-4) mIU/mL Crossmatch See Detail 05/14/22 05/14/22 05/14/22 Range/Units 14:50 14:50 20:25 WBC 13.3 H (4.5-11.0) K/mm3 RBC 1.89 L (3.65-5.03) M/mm3 Hgb 5.2 L* D (10.1-14.3) gm/dl Hct 16.2 L* D (30.3-42.9) % MCH (28-32) pg RDW (13.2-15.2) % Lymph % (Auto) (13.4-35.0) % Lymph # (Auto) (1.2-5.4) K/mm3 Seg Neutrophils % (40.0-70.0) % Seg Neutrophils # (1.8-7.7) K/mm3 PT 20.0 H 17.6 H (12.2-14.9) Sec. INR 1.51 H 1.29 H (0.87-1.13) APTT 58.9 H (24.2-36.6) Sec. Fibrinogen 124 L* (211-480) mg/dl HCG, Quant (0-4) mIU/mL Crossmatch 05/14/22 05/14/22 05/15/22 Range/Units Unknown Unknown 05:13 WBC (4.5-11.0) K/mm3 RBC (3.65-5.03) M/mm3 Hgb 9.3 L D 7.7 L (10.1-14.3) gm/dl Hct 27.8 L D 22.6 L (30.3-42.9) % MCH (28-32) pg RDW (13.2-15.2) % Lymph % (Auto) (13.4-35.0) % Lymph # (Auto) (1.2-5.4) K/mm3 Seg Neutrophils % (40.0-70.0) % Seg Neutrophils # (1.8-7.7) K/mm3 PT 17.2 H (12.2-14.9) Sec. INR 1.25 H (0.87-1.13) APTT (24.2-36.6) Sec. Fibrinogen 195 L (211-480) mg/dl HCG, Quant (0-4) mIU/mL Crossmatch 05/15/22 Range/Units 06:30 WBC (4.5-11.0) K/mm3 RBC (3.65-5.03) M/mm3 Hgb (10.1-14.3) gm/dl Hct (30.3-42.9) % MCH (28-32) pg RDW (13.2-15.2) % Lymph % (Auto) (13.4-35.0) % Lymph # (Auto) (1.2-5.4) K/mm3 Seg Neutrophils % (40.0-70.0) % Seg Neutrophils # (1.8-7.7) K/mm3 PT 16.7 H (12.2-14.9) Sec. INR 1.21 H (0.87-1.13) APTT (24.2-36.6) Sec. Fibrinogen (211-480) mg/dl HCG, Quant (0-4) mIU/mL Crossmatch
--- NOTE | 2022-05-15 08:58 | Cat Scan Report ---
CTA ABDOMEN AND PELVIS INDICATION / CLINICAL INFORMATION: acute uterine bleeding. TECHNIQUE: Axial CT images were obtained through the abdomen and pelvis after injection of IV contras t. 3 plane MIP and/or 3D reconstructions were produced. All CT scans at this location are performed u sing CT dose reduction for ALARA by means of automated exposure control. COMPARISON: Omnipaque 300, 100 cc FINDINGS: ABDOMINAL AORTA: - Dissection: No dissection. - Aneurysm: No aneurysm or pseudoaneurysm. - Atherosclerosis: No significant atherosclerosis. CELIAC TRUNK: No significant abnormality. SUPERIOR MESENTERIC ARTERY: No significant abnormality. RENAL ARTERIES: No significant abnormality. INFERIOR MESENTERIC ARTERY: No significant abnormality. RIGHT ILIAC ARTERIES: No acute abnormality. No significant atherosclerosis. LEFT ILIAC ARTERIES: No acute abnormality. No significant atherosclerosis. RIGHT FEMORAL ARTERIES: No acute abnormality. No significant atherosclerosis. LEFT FEMORAL ARTERIES: No acute abnormality. No significant atherosclerosis. ABDOMINOPELVIC VEINS: Single IVC of normal caliber to the right of midline. No significant abnormalit y. ADDITIONAL ABDOMINOPELVIC FINDINGS: Mild basilar effusions with associated atelectasis. Mild ascites. Very heterogeneous perfusion of the spleen. Mild postoperative free air with postsurgical changes at the lower abdominal wall. Slightly more localized higher density fluid at the cul-de-sac measuring 3 x 4.3 cm. SKELETAL SYSTEM: No significant abnormality. IMPRESSION: 1. No active bleeding site identified. 2. Mild pleural fluid, ascites and small fluid collection at the cul-de-sac which may be a small jazmyn juan. 3. Heterogeneous splenic perfusion is favored to be due to arterial phase unless the patient has symp toms localized to this region. Signer Name: Joe Weber MD Signed: 05/15/2022 8:53 AM Workstation Name: [email or web address]
--- NOTE | 2022-05-15 10:58 | Consultation ---
History of Present Illness Consult date: 05/15/22 Requesting physician: TATI SCHMIDT Reason for consult: other (ABLA) History of present illness: PULMONARY/CCM CONSULT NOTE (Full dictation # [id number]) Please see dictated notes for full details Past History Social history: no significant social history Medications and Allergies Allergies Allergy/AdvReac Type Severity Reaction Status Date / Time No Known Allergies Allergy Verified 05/14/22 09:54 Home Medications Medication Instructions Recorded Confirmed Last Taken Type Docusate Sodium [Colace] 100 mg PO BID #60 capsule 05/06/22 Unknown Rx Ferrous Sulfate [Feosol 325 MG tab] 325 mg PO BID #60 tablet 05/06/22 Unknown Rx Ibuprofen [Motrin 800 MG tab] 800 mg PO Q6H PRN #40 tablet 05/06/22 Unknown Rx oxyCODONE /ACETAMINOPHEN [Percocet 2 tab PO Q4H PRN #40 tablet 05/06/22 Unknown Rx 5/325 mg] Active Meds: Active Medications Acetaminophen (Acetaminophen 325 Mg Tab) 650 mg PO Q4H PRN PRN Reason: Pain, Mild (1-3) Last Admin: 05/15/22 05:56 Dose: 650 mg Lactated Ringer's (Lactated Ringers) 1,000 mls @ 75 mls/hr IV DIRECT STEFAN Last Admin: 05/14/22 20:49 Dose: 75 mls/hr Cefazolin Sodium (Ancef/Sterile Water 2 Gm/20 Ml) 2 gm in 20 mls @ 80 mls/hr IV PREOP NR; Protocol Stop: 05/15/22 23:59 Sodium Chloride (Nacl 0.9% 500 Ml) 500 mls @ 0 mls/hr IV ONCE STEFAN Morphine Sulfate (Morphine 4 Mg/1 Ml Inj) 4 mg IV Q4H PRN PRN Reason: Pain , Severe (7-10) Stop: 05/15/22 17:35 Morphine Sulfate (Morphine 2 Mg/1 Ml Inj) 2 mg IV Q4H PRN PRN Reason: Pain, Moderate (4-6) Naloxone HCl (Naloxone 0.4 Mg/1 Ml Inj) 0.1 mg IV Q2MIN PRN PRN Reason: Res Rate </= 8 or 02 SAT < 92% Ondansetron HCl (Ondansetron 4 Mg/2 Ml Inj) 4 mg IV Q8H PRN PRN Reason: Nausea And Vomiting Physical Examination Vital signs: Vital Signs Temp Pulse Resp BP Pulse Ox 98.2 F 98 H 18 116/74 98 05/14/22 09:53 05/14/22 09:53 05/14/22 09:53 05/14/22 09:53 05/14/22 09:53 Results - Laboratory Findings CBC and BMP: 05/15/22 05:13 05/14/22 10:37 PT/INR, D-dimer PT 16.7 Sec. (12.2-14.9) H 05/15/22 06:30 INR 1.21 (0.87-1.13) H 05/15/22 06:30 Abnormal lab findings: Abnormal Labs 05/14/22 05/14/22 05/14/22 10:37 10:37 10:44 WBC RBC 3.40 L Hgb 9.0 L Hct 28.8 L MCH 27 L RDW 13.0 L Lymph % (Auto) 8.6 L Lymph # (Auto) 0.8 L Seg Neutrophils % 87.1 H Seg Neutrophils # 8.6 H PT INR APTT Fibrinogen HCG, Quant 142.5 H Crossmatch See Detail 05/14/22 05/14/22 05/14/22 14:50 14:50 20:25 WBC 13.3 H RBC 1.89 L Hgb 5.2 L* D Hct 16.2 L* D MCH RDW Lymph % (Auto) Lymph # (Auto) Seg Neutrophils % Seg Neutrophils # PT 20.0 H 17.6 H INR 1.51 H 1.29 H APTT 58.9 H Fibrinogen 124 L* HCG, Quant Crossmatch 05/14/22 05/14/22 05/15/22 Unknown Unknown 05:13 WBC RBC Hgb 9.3 L D 7.7 L Hct 27.8 L D 22.6 L MCH RDW Lymph % (Auto) Lymph # (Auto) Seg Neutrophils % Seg Neutrophils # PT 17.2 H INR 1.25 H APTT Fibrinogen 195 L HCG, Quant Crossmatch 05/15/22 06:30 WBC RBC Hgb Hct MCH RDW Lymph % (Auto) Lymph # (Auto) Seg Neutrophils % Seg Neutrophils # PT 16.7 H INR 1.21 H APTT Fibrinogen HCG, Quant Crossmatch
--- NOTE | 2022-05-15 15:42 | Consultation ---
History of Present Illness - Reason for Consult Consult date: 05/15/22 Anemia Requesting physician: TATI SCHMIDT - History of Present Illness Pt is a 41 year old female with history of lupus, POD#11 s/p repeat section and bilateral tubal ligation on 05/04/22, discharge home on POD #3 with an uncomplicated postoperative course who reports she was doing well at home until early this morning when she woke from her sleep in a pool of blood. She denies heavy lifting or deviating from her postoperative instructions. She was brought to the ED by EMS. The ED physician notes heavy vaginal bleeding. He reports clearing out the clots, and packing the vagina,as well as placing a thompson catheter. She had a pelvic ultrasound that was suspicious for retained products she subsequently was diagnosed with hemorrhage acute blood loss anemia secondary to the same she underwent a supracervical abdominal hysterectomy without complications and subsequently transferred to the ICU for closer monitoring. On were consulted for assistance with management of anemia. Patient seen and examined today doing well discussed with the drywall hanger helper will be transferring the patient to IMCU for monitoring due to mild drop in hemoglobin down to 7.7 from initial 9.3 although previously 5.2 prior to transfusion. Is unclear to me the patient received an actual packed red blood cell due to the documentation but otherwise had received a hep C and is clinically doing well at this time. She denies any nausea vomiting or diarrhea she denies. Past History Past Medical History: anemia, other (lupus) Past Surgical History: appendectomy, (x4) Social history: no significant social history Family history: hypertension Medications and Allergies Allergies Allergy/AdvReac Type Severity Reaction Status Date / Time No Known Allergies Allergy Verified 05/14/22 09:54 Home Medications Medication Instructions Recorded Confirmed Last Taken Type Docusate Sodium [Colace] 100 mg PO BID #60 capsule 05/06/22 Unknown Rx Ferrous Sulfate [Feosol 325 MG tab] 325 mg PO BID #60 tablet 05/06/22 Unknown Rx Ibuprofen [Motrin 800 MG tab] 800 mg PO Q6H PRN #40 tablet 05/06/22 Unknown Rx oxyCODONE /ACETAMINOPHEN [Percocet 2 tab PO Q4H PRN #40 tablet 05/06/22 Unknown Rx 5/325 mg] Active Meds: Active Medications Acetaminophen (Acetaminophen 325 Mg Tab) 650 mg PO Q4H PRN PRN Reason: Pain, Mild (1-3) Last Admin: 05/15/22 05:56 Dose: 650 mg Lactated Ringer's (Lactated Ringers) 1,000 mls @ 75 mls/hr IV DIRECT STEFAN Last Admin: 05/14/22 20:49 Dose: 75 mls/hr Cefazolin Sodium (Ancef/Sterile Water 2 Gm/20 Ml) 2 gm in 20 mls @ 80 mls/hr IV PREOP NR; Protocol Stop: 05/15/22 23:59 Sodium Chloride (Nacl 0.9% 500 Ml) 500 mls @ 0 mls/hr IV ONCE STEFAN Morphine Sulfate (Morphine 4 Mg/1 Ml Inj) 4 mg IV Q4H PRN PRN Reason: Pain , Severe (7-10) Stop: 05/15/22 17:35 Morphine Sulfate (Morphine 2 Mg/1 Ml Inj) 2 mg IV Q4H PRN PRN Reason: Pain, Moderate (4-6) Last Admin: 05/15/22 13:15 Dose: 2 mg Naloxone HCl (Naloxone 0.4 Mg/1 Ml Inj) 0.1 mg IV Q2MIN PRN PRN Reason: Res Rate </= 8 or 02 SAT < 92% Ondansetron HCl (Ondansetron 4 Mg/2 Ml Inj) 4 mg IV Q8H PRN PRN Reason: Nausea And Vomiting Exam - Physical Exam Narrative exam: VITAL SIGNS: Reviewed. GENERAL: The patient appears normally developed, Vital signs as documented. HEAD: No signs of head trauma. EYES: Pupils are equal. Extraocular motions intact. EARS: Hearing grossly intact. MOUTH: Oropharynx is normal. NECK: No adenopathy, no JVD. CHEST: Chest with clear breath sounds bilaterally. No wheezes, rales, or rhonchi. CARDIAC: Regular rate and rhythm. S1 and S2, without murmurs, gallops, or rubs. VASCULAR: No Edema. Peripheral pulses normal and equal in all extremities. ABDOMEN: Soft, dressing below quadrant area with drainage. Non tender and non distended. No rebound or guarding, and no masses palpated. Bowel Sounds normal. MUSCULOSKELETAL: Good range of motion of all major joints. Extremities without clubbing, cyanosis or edema. NEUROLOGIC EXAM: Alert and oriented x 3 No focal sensory or strength deficits. Speech normal. Follows commands. PSYCHIATRIC: Mood normal. SKIN: detail exam as documented in skin assessment - Constitutional Vitals: Temp Pulse Resp BP Pulse Ox 97.9 F 87 20 119/54 99 05/15/22 11:34 05/15/22 15:03 05/15/22 15:03 05/15/22 13:01 05/15/22 15:03 Results - Labs CBC & Chem 7: 05/15/22 05:13 05/14/22 10:37 Labs: Abnormal lab results 05/14/22 05/14/22 05/14/22 Range/Units 10:37 14:50 20:25 Hgb (10.1-14.3) gm/dl Hct (30.3-42.9) % PT 20.0 H 17.6 H (12.2-14.9) Sec. INR 1.51 H 1.29 H (0.87-1.13) APTT 58.9 H (24.2-36.6) Sec. Fibrinogen 124 L* (211-480) mg/dl Crossmatch See Detail 05/14/22 05/14/22 05/15/22 Range/Units Unknown Unknown 05:13 Hgb 9.3 L D 7.7 L (10.1-14.3) gm/dl Hct 27.8 L D 22.6 L (30.3-42.9) % PT 17.2 H (12.2-14.9) Sec. INR 1.25 H (0.87-1.13) APTT (24.2-36.6) Sec. Fibrinogen 195 L (211-480) mg/dl Crossmatch 05/15/22 Range/Units 06:30 Hgb (10.1-14.3) gm/dl Hct (30.3-42.9) % PT 16.7 H (12.2-14.9) Sec. INR 1.21 H (0.87-1.13) APTT (24.2-36.6) Sec. Fibrinogen (211-480) mg/dl Crossmatch Assessment and Plan Pt is a 41 year old female with history of lupus, POD#11 s/p repeat section and bilateral tubal ligation on 05/04/22, discharge home on POD #3 with an uncomplicated postoperative course who reports she was doing well at home until early this morning when she woke from her sleep in a pool of blood. She denies heavy lifting or deviating from her postoperative instructions. She was brought to the ED by EMS. The ED physician notes heavy vaginal bleeding. He reports clearing out the clots, and packing the vagina,as well as placing a thompson catheter. She had a pelvic ultrasound that was suspicious for retained products she subsequently was diagnosed with hemorrhage acute blood loss anemia secondary to the same she underwent a supracervical abdominal hysterectomy without complications and subsequently transferred to the ICU for closer monitoring. On were consulted for assistance with management of anemia. Patient seen and examined today doing well discussed with the drywall hanger helper will be transferring the patient to IMCU for monitoring due to mild drop in hemoglobin down to 7.7 from initial 9.3 although previously 5.2 prior to transfusion. Is unclear to me the patient received an actual packed red blood cell due to the documentation but otherwise had received a hep C and is clinically doing well at this time. She denies any nausea vomiting or diarrhea she denies. Hemorrhage Acute Blood Loss Anemia Lupus Status post abdominal hysterectomy History of x4 Plan Continue supportive care Agree with Transfusion and FFP Monitor coagulation factors OK to transfer to [facility] in am if H/H is stable. DVT Prophy -SCD Avoid antiplatelets GI Prohy CCT 35 MINS
[2022-05-15] MEDS: LACTATED RINGERS 1,000 ML IV SCH (20:22)
--- NOTE | 2022-05-16 03:45 | Consultation ---
DATE OF CONSULTATION: 05/15/2022 PULMONARY CRITICAL CARE CONSULT NOTE CONSULTING PHYSICIAN: Dr. Ayala. REASON FOR CONSULTATION: Acute blood loss anemia, fear of impending disseminated intravascular coagulation. CHIEF COMPLAINT AND HISTORY OF PRESENT ILLNESS: The patient is a now 41-year-old female with past medical history significant amongst other things for a diagnosis of lupus and baseline anemia, who is status post a repeat section, postop day 10 as well as bilateral tubal ligations that were done on 05/04/2022. She was discharged home at that time on postop day #3 with an uncomplicated postoperative course. On the day of representation, she woke up from her sleep in a pool of blood. She denied any heavy lifting. She denied any trauma. She had been following her postoperative instructions. The ED physician did notice heavy vaginal bleeding including clots. She had a pelvic ultrasound that was suspicious for retained products. She was taken into the OR and abdominal hysterectomy was done. They found an enlarged boggy pale uterus about 20-22 week size, filled with organized clots, normal appearing ovaries and evidence of tubal ligation. Her estimated blood loss was about 1.25 liters. Postop though her hemoglobin had dropped from 9.0 to 5.2. Her INR had gone from normal to 1.5. Her fibrinogen level was down to 124 as a result of the fear of impending DIC and continued bleeding. Intensive care unit admission was requested and offered. When I stopped by to see her today, she was feeling better as there was no further active bleeding that she could see. She denied nausea or vomiting. She denied chest pains or palpitations. She denied any lightheadedness. Of note, examination revealed a systolic murmur and her mother revealed a history of congenital heart disease, at which time she was told that it should get better on its own, but she does not know what exactly it was. She does have some pedal edema as well. With regards to tobacco use/abuse history, she denies. This really is as much of the history of presentation as I have. PAST MEDICAL HISTORY: History of systemic lupus erythematosus, history of anemia, history of hematologic disorder. PAST SURGICAL HISTORY: She has had an appendectomy. She has had sections x4, now with a abdominal hysterectomy. MEDICATIONS: She was on at the time I stopped by to see her according to the medication administration record included the following: Tylenol 650 mg p.o. q. 4 hours p.r.n. mild pain or fevers, Ancef 2 g IV preop. She received lactated Ringer's 1 liter at 75 mL per hour, morphine sulfate 4 mg IV q. 4 hours p.r.n. severe pain and 2 mg IV q. 4 hours p.r.n. moderate pain, naloxone p.r.n., Zofran 4 mg IV q. 8 hours p.r.n. nausea and vomiting. ALLERGIES: No known drug allergies. DIET: Obese lady. She gained weight appropriately during . FAMILY AND SOCIAL HISTORY: Lives in the community. Denies alcohol, tobacco or illicit drug use or abuse. FAMILY HISTORY: There is a family history of hypertension. REVIEW OF SYSTEMS: No loss of consciousness. No new onset seizures. No new onset focal weakness. She denies any polydipsia or polyuria. She denies heat or cold intolerance. Denies gross hematochezia. She had vaginal bleeding. She denies hemoptysis. She denies a history of Raynaud's type phenomenon. Review of systems otherwise unobtainable or as in body of history above. PHYSICAL EXAMINATION: VITAL SIGNS: On presentation, she was afebrile, temperature 98.2 degrees Fahrenheit with a pulse of 98, respiratory rate of 18, blood pressure 116/74, and O2 sats of 98%, at the time I saw her, she was on room air. She has had a T-max of 102.9 degrees Fahrenheit, but her temperature is normal this morning. GENERAL: Again, middle-aged obese female, normocephalic, atraumatic. Resting in bed with normal respiratory effort at rest. HEAD, EYES, EARS, NOSE AND THROAT: Anicteric. No conjunctival erythema. Oropharynx was moist. NECK: No gross jugular venous distention, no thyromegaly. Grossly, there were no palpable lymph nodes in the supraclavicular or submandibular lymph node chains. LUNGS: On auscultation of both Lung burns, lungs were clear bilaterally, no wheezing. HEART: Sounds 1 and 2 are heard, regular rate and rhythm. She did have a 3/6 systolic murmur, no rubs were heard. ABDOMEN: Soft, full, protuberant. Bowel sounds are positive. Tender around the perioperative region. No palpable hepatosplenomegaly. EXTREMITIES: Without overt digital clubbing or cyanosis. She has 1+ bipedal pitting edema. Pedal pulses are 2+ bilaterally. NEUROLOGIC: Pupils are equal, round, about 4 mm, reactive to light. Extraocular muscle movements are intact. She moves all 4 extremities spontaneously. SKIN: Normal turgor without overt cellulitis. She had a lupus type malar rash to her face. Otherwise, again no cellulitis in the areas examined. Please see the wound care nurses' notes for full description of her skin. PSYCHIATRIC: Mood was normal. Affect was appropriate. She had intact judgment and insight. LABORATORY DATA: From my review, admission white cell count 9800, hemoglobin 9.0, hematocrit 28.8, platelet count 227. No manual differential. INR was 1.04 at presentation. Serum sodium 139, potassium 4.1, chloride 107, bicarbonate 23, BUN 10, creatinine 0.6, glucose was 92. Beta hCG 142.5. Urinalysis showed moderate blood, negative for nitrites and leukocyte esterase, no bacteria. No microbiology studies. Chest x-ray, really no acute findings, perhaps does have borderline cardiomegaly; it is an AP film. A CT of the abdomen and pelvis was done, no active bleeding identified, mild pleural fluid, small fluid collections at the cul-de-sac, which could be a small hematoma, heterogeneous splenic perfusion favored due to arterial phase, nonetheless the patient has symptoms related to the region. ASSESSMENT: 1. Acute blood loss anemia. 2. Systemic lupus erythematosus. 3. Congenital heart disease likely, etiology unknown. 4. Cardiomyopathy. 5. Mild coagulopathy. 6. Status post abdominal hysterectomy. PLAN: It is really unclear how much blood products, she has received. I believe she has received about 3 units of blood, it went up to about 9.3 from 5.2. She is back down to 7.7 this morning though. Clinically, she is stable. With regards to the coagulation parameters, her fibrinogen level was 124, it is up to within normal range now. INR is down to 1.21. She is clinically stable. I am bothered about heart murmur. Does not appear to be significant hemodynamical at this point. I wonder if it is somewhat related to her bipedal edema. A 2D echocardiogram will be ordered again plus or minus cardiology evaluation. Again, I am bothered about further drop in hemoglobin from 9.3 to 7.7. She does not need critical care unit admission at this time, but I think she might benefit from being observed 1 night in the step-down unit and we will continue q. 6 hour H and H x24 hours. Oxygen will be offered as necessary to keep sats greater than or equal to about 90%. Aspiration precautions will be maintained. I will give her a one-time dose of Lasix as she does have some periorbital edema and pedal edema Again, while we await 2D echocardiogram results, she is going to be placed on GI prophylaxis with Pepcid. DVT prophylaxis will be with SCDs. Flu and pneumonia vaccination will be addressed per protocol. Thank you very much for the consult. Dr. Ayala will follow along and make further recommendations as picture progresses/becomes clearer. TID: [id number] RECEIPT: [id number] ANTONIO/OPHELIA
--- NOTE | 2022-05-16 07:15 | Progress Note ---
Assessment and Plan A: POD#2 S/P supracervical abdominal hysterectomy Acute Blood Loss Anemia/DIC s/p 3 units PRBCs, 2 units FFP, 1 unit of albumin Lupus P: Repeat H/H, coags this AM Consider transfer to Mother Baby unit later today Advance diet, remove thompson Closely monitor clinical status Subjective - Subjective Date of service: 05/16/22 Principal diagnosis: POD#2 s/p supracerivcal abdominal hysterectomy, DIC Interval history: Maternity Floor Supervisor notes reviewed and appreciated. CT report reviewed Pt awake and talkative this morning. Pt is asking for solid food. She is passing flatus. Patient reports: appetite normal, pain well controlled, flatus, no voiding normally (thompson in place ), no bowel movement, no ambulating normally (SCDs in place ) Objective - Vital Signs Latest vital signs: Vital Signs Temp Pulse Resp BP BP Pulse Ox 05/16/22 06:00 77 20 135/56 100 05/16/22 05:00 84 19 148/64 99 05/16/22 04:00 97.6 F 75 20 129/56 100 05/16/22 03:00 73 21 138/53 100 05/16/22 02:00 78 22 120/55 100 05/16/22 01:01 84 22 130/60 100 05/16/22 00:00 84 17 116/55 99 05/15/22 23:34 98.2 F 05/15/22 23:30 86 19 114/59 100 05/15/22 23:00 86 16 114/59 100 05/15/22 22:00 88 25 H 120/56 100 05/15/22 21:00 91 H 21 109/51 99 05/15/22 20:00 101.2 F H 96 H 23 127/56 99 05/15/22 19:00 92 H 27 H 112/59 100 05/15/22 18:00 93 H 26 H 117/54 100 05/15/22 17:01 99 H 26 H 100 05/15/22 16:54 98.4 F 05/15/22 16:01 87 23 100 05/15/22 16:00 98.8 F 93 H 18 135/59 99 05/15/22 15:03 87 20 99 05/15/22 14:01 91 H 24 100 05/15/22 13:01 96 H 24 119/54 100 05/15/22 12:00 72 20 118/50 100 05/15/22 11:34 97.9 F 05/15/22 11:01 83 19 123/51 100 05/15/22 10:00 94 H 19 128/64 100 05/15/22 09:00 74 22 132/54 99 05/15/22 08:15 129/66 100 05/15/22 08:00 18 99 Intake and Output 05/15/22 05/16/22 05/16/22 22:59 06:59 14:59 Intake Total 250 Output Total 600 Balance 250 -600 Intake: Oral 250 Output: Urine 600 Indwelling Catheter 600 Other: Total, Intake Amount 250 Total, Output Amount 600 Voiding Method Indwelling Catheter Indwelling Catheter - Exam Breasts: Present: deferred Abdomen: Present: soft. Absent: distention Extremities: Present: normal Incision: Present: dressed (dry ) - Labs Labs: Abnormal lab results 05/14/22 05/15/22 Range/Units 10:37 21:27 POC Glucose 107 H (70-105) mg/dL Crossmatch See Detail
--- NOTE | 2022-05-16 11:35 | Progress Note ---
Assessment and Plan Acute blood loss anemia Systemic lupus erythematosus H/O Congenital heart disease Cardiomyopathy Mild coagulopathy Status post abdominal hysterectomy - 2D ECHO normal - no gross bleeding and H&H holding - prn supplemental oxygen to keep O2 sats > 90% - prn bronchodilators (MIGUEL) with pulm hygiene per RT - avoid nephrotoxins, renally dose all medications - mobility protocols to prevent pressure ulcers - PT/OT as tolerated - Wound care per RN/WCT - accuchecks with glycemic control per SSI for target blood glucose < 180 mg/dL - continued tobacco abstinence strongly counseled at the bedside - home oxygen evaluation at discharge - GI & VTE prophylaxis - Flu & pneumovax per protocol - prn analgesia per pain score - continue other care per attending / other consultants ... ok to transfer to mother/baby floor ... re-evaluate in am & prn Subjective Date of service: 05/16/22 Principal diagnosis: ABLA; SLE; H/O Congenital heart dx; Coagulopathy; S/P abd hysterectomy Interval history: Patient is seen today for: Acute blood loss anemia; Systemic lupus erythematosus; H/O Congenital heart disease ; Mild coagulopathy; S/P abdominal hysterectomy Seen and examined at bedside; 24hour events reviewed; nursing and respiratory care staff consulted; no adverse overnight events reported to me; resting peacefully in bed; denies acutye chest pains or SOB; No N/V/F/C; no gross bl eeding Objective Vital Signs - 12hr 05/16/22 05/16/22 05/16/22 00:00 01:01 02:00 Temperature Pulse Rate 84 84 78 Respiratory 17 22 22 Rate Blood Pressure 116/55 130/60 120/55 O2 Sat by Pulse 99 100 100 Oximetry 05/16/22 05/16/22 05/16/22 03:00 04:00 05:00 Temperature 97.6 F Pulse Rate 73 75 84 Respiratory 21 20 19 Rate Blood Pressure 138/53 129/56 148/64 O2 Sat by Pulse 100 100 99 Oximetry 05/16/22 05/16/22 05/16/22 06:00 07:00 07:13 Temperature 99.2 F Pulse Rate 77 74 Respiratory 20 23 Rate Blood Pressure 135/56 130/46 O2 Sat by Pulse 100 100 Oximetry 05/16/22 05/16/22 05/16/22 08:00 09:00 09:01 Temperature Pulse Rate 82 78 75 Respiratory 21 24 Rate Blood Pressure 126/58 129/62 O2 Sat by Pulse 99 100 Oximetry 05/16/22 05/16/22 10:00 11:01 Temperature Pulse Rate 91 H 91 H Respiratory 21 15 Rate Blood Pressure 139/59 129/62 O2 Sat by Pulse 100 100 Oximetry Constitutional: no acute distress Eyes: non-icteric ENT: oropharynx moist Neck: supple, no lymphadenopathy, no JVD Effort: normal Ascultation: Bilateral: clear Percussion: Bilateral: not dull Cardiovascular: regular rate and rhythm Gastrointestinal: normoactive bowel sounds, soft, non-tender, non-distended (protuberant) Integumentary: normal Extremities: no cyanosis, no edema, pulses normal, no ischemia or petechiae Neurologic: normal mental status, non-focal exam, pupils equal and round, motor strength normal and Psychiatric: mood appropriate, affect normal CBC and BMP: 05/16/22 11:20 05/14/22 10:37 ABG, PT/INR, D-dimer: PT/INR, D-dimer PT 16.7 Sec. (12.2-14.9) H 05/15/22 06:30 INR 1.21 (0.87-1.13) H 05/15/22 06:30 Abnormal lab findings: Abnormal Labs 05/14/22 05/14/22 05/14/22 10:37 10:37 10:44 WBC RBC 3.40 L Hgb 9.0 L Hct 28.8 L MCH 27 L RDW 13.0 L Lymph % (Auto) 8.6 L Lymph # (Auto) 0.8 L Seg Neutrophils % 87.1 H Seg Neutrophils # 8.6 H PT INR APTT Fibrinogen POC Glucose HCG, Quant 142.5 H Crossmatch See Detail 05/14/22 05/14/22 05/14/22 14:50 14:50 20:25 WBC 13.3 H RBC 1.89 L Hgb 5.2 L* D Hct 16.2 L* D MCH RDW Lymph % (Auto) Lymph # (Auto) Seg Neutrophils % Seg Neutrophils # PT 20.0 H 17.6 H INR 1.51 H 1.29 H APTT 58.9 H Fibrinogen 124 L* POC Glucose HCG, Quant Crossmatch 05/14/22 05/14/22 05/15/22 Unknown Unknown 05:13 WBC RBC Hgb 9.3 L D 7.7 L Hct 27.8 L D 22.6 L MCH RDW Lymph % (Auto) Lymph # (Auto) Seg Neutrophils % Seg Neutrophils # PT 17.2 H INR 1.25 H APTT Fibrinogen 195 L POC Glucose HCG, Quant Crossmatch 05/15/22 05/15/22 06:30 21:27 WBC RBC Hgb Hct MCH RDW Lymph % (Auto) Lymph # (Auto) Seg Neutrophils % Seg Neutrophils # PT 16.7 H INR 1.21 H APTT Fibrinogen POC Glucose 107 H HCG, Quant Crossmatch Allied health notes reviewed: nursing
[2022-05-16 12:07] LABS: Hematocrit 20.7 % (30.3-42.9); Hemoglobin 7.2 gm/dl (10.1-14.3)
[2022-05-16 12:11] LABS: INR 0.97 (0.87-1.13)
--- NOTE | 2022-05-16 12:21 | Progress Note ---
Assessment and Plan Assessment and plan: History of Present Illness Pt is a 41 year old female with history of lupus, POD#11 s/p repeat section and bilateral tubal ligation on 05/04/22, discharge home on POD #3 with an uncomplicated postoperative course who reports she was doing well at home until early this morning when she woke from her sleep in a pool of blood. She denies heavy lifting or deviating from her postoperative instructions. She was brought to the ED by EMS. The ED physician notes heavy vaginal bleeding. He reports clearing out the clots, and packing the vagina,as well as placing a thompson catheter. She had a pelvic ultrasound that was suspicious for retained products she subsequently was diagnosed with hemorrhage acute blood loss anemia secondary to the same she underwent a supracervical abdominal hysterectomy without complications and subsequently transferred to the ICU for closer monitoring. On were consulted for assistance with management of anemia. Patient seen and examined today doing well discussed with the braille translator will be transferring the patient to IMCU for monitoring due to mild drop in hemoglobin down to 7.7 from initial 9.3 although previously 5.2 prior to transfusion. Is unclear to me the patient received an actual packed red blood cell due to the documentation but otherwise had received a hep C and is clinically doing well at this time. She denies any nausea vomiting or diarrhea she denies. Assessment: # Hemorrhage #Acute Blood Loss Anemia #Lupus #Status post abdominal hysterectomy #History of x4 Plan Continue supportive care s/p 1 unit prbc, 2 unit ffp. Monitor coagulation factors OK to transfer to Mother Baby in am if VSS & H/H is stable. DVT Prophy -SCD Avoid antiplatelets GI Prohy The high probability of a clinically significant, sudden or life threatening deterioration of the [heme] system(s) required my full and direct attention, intervention and personal management. The aggregate critical care time was [60] minutes. This time is in addition to time spent performing reported procedures but includes the following: [x] Data Review and interpretation [x] Patient assessment and monitoring of vital signs [x] Documentation [x] Medication orders and management History Interval history: No acute complaints on encounter. Patient does state that she had some bloody vaginal discharge but this was minimal. Denies any gross hematuria or rectal bleeding otherwise. She denies any dizziness, chest pain, palpitations. She states that she feels well and has no complaint of pain or issues otherwise. Care plan discussed with patient at bedside today. Hospitalist Physical - Physical exam Narrative exam: Physical Exam: VITAL SIGNS: Reviewed. GENERAL: The patient appears normally developed, Vital signs as documented. HEAD: No signs of head trauma. EYES: Pupils are equal. Extraocular motions intact. EARS: Hearing grossly intact. MOUTH: Oropharynx is normal. NECK: No adenopathy, no JVD. CHEST: Chest with clear breath sounds bilaterally. No wheezes, rales, or rhonchi. CARDIAC: Regular rate and rhythm. S1 and S2, without murmurs, gallops, or rubs. VASCULAR: No Edema. Peripheral pulses normal and equal in all extremities. ABDOMEN: Soft, non tender and non distended. No rebound or guarding, and no masses palpated. Bowel Sounds normal. MUSCULOSKELETAL: Good range of motion of all major joints. Extremities without clubbing, cyanosis or edema. NEUROLOGIC EXAM: Alert and oriented x 4. no focal sensory or strength deficits. PSYCHIATRIC: Mood normal. SKIN: detail exam as documented in skin assessment - Constitutional Vitals: Temp Pulse Resp BP Pulse Ox 98.2 F 89 20 129/62 99 05/16/22 11:41 05/16/22 11:51 05/16/22 11:50 05/16/22 11:01 05/16/22 11:50 Results - Labs CBC & Chem 7: 05/16/22 11:20 05/14/22 10:37 Labs: Laboratory Last Values WBC 13.3 K/mm3 (4.5-11.0) H 05/14/22 14:50 RBC 1.89 M/mm3 (3.65-5.03) L 05/14/22 14:50 Hgb 7.2 gm/dl (10.1-14.3) L 05/16/22 11:20 Hct 20.7 % (30.3-42.9) L 05/16/22 11:20 MCV 86 fl (79-97) 05/14/22 14:50 MCH 28 pg (28-32) 05/14/22 14:50 MCHC 32 % (30-34) 05/14/22 14:50 RDW 13.4 % (13.2-15.2) 05/14/22 14:50 Plt Count 141 K/mm3 (140-440) 05/14/22 14:50 Lymph % (Auto) 8.6 % (13.4-35.0) L 05/14/22 10:37 Bowman % (Auto) 3.5 % (0.0-7.3) 05/14/22 10:37 Eos % (Auto) 0.4 % (0.0-4.3) 05/14/22 10:37 Baso % (Auto) 0.4 % (0.0-1.8) 05/14/22 10:37 Lymph # (Auto) 0.8 K/mm3 (1.2-5.4) L 05/14/22 10:37 Bowman # (Auto) 0.3 K/mm3 (0.0-0.8) 05/14/22 10:37 Eos # (Auto) 0.0 K/mm3 (0.0-0.4) 05/14/22 10:37 Baso # (Auto) 0.0 K/mm3 (0.0-0.1) 05/14/22 10:37 Seg Neutrophils % 87.1 % (40.0-70.0) H 05/14/22 10:37 Seg Neutrophils # 8.6 K/mm3 (1.8-7.7) H 05/14/22 10:37 PT 14.0 Sec. (12.2-14.9) 05/16/22 11:20 INR 0.97 (0.87-1.13) 05/16/22 11:20 APTT 28.8 Sec. (24.2-36.6) 05/15/22 06:30 Fibrinogen 317 mg/dl (211-480) 05/15/22 06:30 Sodium 139 mmol/L (137-145) 05/14/22 10:37 Potassium 4.1 mmol/L (3.6-5.0) 05/14/22 10:37 Chloride 106.7 mmol/L (98-107) 05/14/22 10:37 Carbon Dioxide 23 mmol/L (22-30) 05/14/22 10:37 Anion Gap 13 mmol/L 05/14/22 10:37 BUN 10 mg/dL (7-17) 05/14/22 10:37 Creatinine 0.6 mg/dL (0.6-1.2) 05/14/22 10:37 Estimated GFR > 60 ml/min 05/14/22 10:37 BUN/Creatinine Ratio 17 % 05/14/22 10:37 Glucose 92 mg/dL (65-100) 05/14/22 10:37 POC Glucose 107 mg/dL (70-105) H 05/15/22 21:27 Calcium 8.4 mg/dL (8.4-10.2) 05/14/22 10:37 HCG, Quant 142.5 mIU/mL (0-4) H 05/14/22 10:44 Urine Color Yellow (Yellow) 05/14/22 10:24 Urine Turbidity Clear (Clear) 05/14/22 10:24 Urine pH 5.0 (5.0-7.0) 05/14/22 10:24 Ur Specific Haines 1.012 (1.003-1.030) 05/14/22 10:24 Urine Protein <15 mg/dl mg/dL (Negative) 05/14/22 10:24 Urine Glucose (UA) Neg mg/dL (Negative) 05/14/22 10:24 Urine Ketones Neg mg/dL (Negative) 05/14/22 10:24 Urine Blood Mod (Negative) 05/14/22 10:24 Urine Nitrite Neg (Negative) 05/14/22 10:24 Urine Bilirubin Neg (Negative) 05/14/22 10:24 Urine Urobilinogen < 2.0 mg/dL (<2.0) 05/14/22 10:24 Ur Leukocyte Esterase Neg (Negative) 05/14/22 10:24 Urine WBC (Auto) 4.0 /HPF (0.0-6.0) 05/14/22 10:24 Urine RBC (Auto) 36.0 /HPF (0.0-6.0) 05/14/22 10:24 U Epithel Cells (Auto) 1.0 /HPF (0-13.0) 05/14/22 10:24 Urine Mucus Few /HPF 05/14/22 10:24 Blood Type B POSITIVE 05/14/22 10:37 Antibody Screen Negative 05/14/22 10:37 Crossmatch See Detail 05/14/22 10:37 Thompson/IV: Voiding Method Toilet Active Medications - Current Medications Current Medications: Generic Name Dose Route Start Last Admin Trade Name Freq PRN Reason Stop Dose Admin Acetaminophen 650 mg 05/14/22 17:36 05/15/22 20:21 Acetaminophen 325 Mg Tab PO 650 mg Q4H PRN Administration Pain, Mild (1-3) Sodium Chloride 500 mls @ 0 mls/hr 05/14/22 17:29 Nacl 0.9% 500 Ml IV ONCE STEFAN As Directed Morphine Sulfate 2 mg 05/14/22 17:36 05/15/22 13:15 Morphine 2 Mg/1 Ml Inj IV 2 mg Q4H PRN Administration Pain, Moderate (4-6) Naloxone HCl 0.1 mg 05/14/22 17:36 Naloxone 0.4 Mg/1 Ml Inj IV Q2MIN PRN Res Rate </= 8 or 02 SAT < 92% Ondansetron HCl 4 mg 05/14/22 17:36 Ondansetron 4 Mg/2 Ml Inj IV Q8H PRN Nausea And Vomiting Oxycodone/Acetaminophen 2 tab 05/16/22 07:18 Oxycodone /Acetaminophen 5-325mg Tab PO Q4H PRN Pain, Moderate (4-6)
--- NOTE | 2022-05-16 13:34 | Event Note ---
Date: 05/16/22 Patient currently being transported from ICU to [facility]. In transit at this moment.
[2022-05-16] MEDS: oxyCODONE /ACETAMINOPHEN 5-325MG TAB PO PRN (15:46)
[2022-05-17] MEDS: oxyCODONE /ACETAMINOPHEN 5-325MG TAB PO PRN ×2 (05:00→15:49)
--- NOTE | 2022-05-17 08:20 | Progress Note ---
Assessment and Plan - Patient Problems (1) bleeding Current Visit: Yes Status: Acute Plan to address problem: patient demonstrating significant clinical improvement continue routine postop care consider discharge home tomorrow Subjective - Subjective Date of service: 05/17/22 Principal diagnosis: ABLA; SLE; H/O Congenital heart dx; Coagulopathy; S/P abd hysterectomy Interval history: The patient is postop day #3 s/p supracervical hysterectomy for hemorrhage. Her course was complicated by DIC that has resolved. She has no significant complaints today. She is tolerating her diet and ambulating. The patient is supported by her mom. Patient reports: appetite normal, voiding normally, pain well controlled [place]: doing well Objective - Vital Signs Latest vital signs: Vital Signs Temp Pulse Resp BP BP BP Pulse Ox 05/17/22 04:29 98.7 F 74 18 110/51 100 05/17/22 00:38 98.2 F 73 18 104/52 100 05/16/22 22:45 89 113/52 05/16/22 20:09 98.2 F 95 H 18 99/39 98 05/16/22 20:00 98 05/16/22 16:32 98.8 F 97 H 18 120/49 100 05/16/22 14:00 98.8 F 100 H 20 129/52 100 05/16/22 13:55 20 100 05/16/22 13:30 93 H 24 119/67 100 05/16/22 13:21 82 23 119/67 98 05/16/22 13:11 87 25 H 119/67 99 05/16/22 13:00 87 20 119/67 100 05/16/22 12:00 94 H 15 120/51 100 05/16/22 11:51 89 05/16/22 11:50 20 99 05/16/22 11:41 98.2 F 05/16/22 11:01 91 H 15 129/62 100 05/16/22 10:00 91 H 21 139/59 100 05/16/22 09:01 75 05/16/22 09:00 78 24 129/62 100 Intake and Output 05/16/22 05/17/22 05/17/22 22:59 06:59 14:59 Other: # Voids Void 1 # Bowel Movements 1 - Exam Abdomen: Present: normal appearance, soft Incision: Present: dressed - Labs Labs: Abnormal lab results 05/16/22 Range/Units 11:20 Hgb 7.2 L (10.1-14.3) gm/dl Hct 20.7 L (30.3-42.9) %
--- NOTE | 2022-05-17 09:27 | Progress Note ---
Assessment and Plan Assessment and plan: History of Present Illness Pt is a 41 year old female with history of lupus, POD#11 s/p repeat section and bilateral tubal ligation on 05/04/22, discharge home on POD #3 with an uncomplicated postoperative course who reports she was doing well at home until early this morning when she woke from her sleep in a pool of blood. She denies heavy lifting or deviating from her postoperative instructions. She was brought to the ED by EMS. The ED physician notes heavy vaginal bleeding. He reports clearing out the clots, and packing the vagina,as well as placing a thompson catheter. She had a pelvic ultrasound that was suspicious for retained products she subsequently was diagnosed with hemorrhage acute blood loss anemia secondary to the same she underwent a supracervical abdominal hysterectomy without complications and subsequently transferred to the ICU for closer monitoring. On were consulted for assistance with management of anemia. Patient seen and examined today doing well discussed with the blade sharpener will be transferring the patient to IMCU for monitoring due to mild drop in hemoglobin down to 7.7 from initial 9.3 although previously 5.2 prior to transfusion. Is unclear to me the patient received an actual packed red blood cell due to the documentation but otherwise had received a hep C and is clinically doing well at this time. She denies any nausea vomiting or diarrhea she denies. Assessment: # Hemorrhage #Acute Blood Loss Anemia #Lupus #Status post abdominal hysterectomy #History of x4 Plan Continue supportive care Continue to monitor blood pressure, she remains normotensive s/p 1 unit prbc, 2 unit ffp. H&H stable Monitor coagulation factors DVT Prophy -SCD Avoid antiplatelets GI Prohy Recommend iron supplements on discharge. Recommend follow-up CBC as an outpatient in 2 weeks. Internal medicine service will continue to follow along while patient remains in hospital Disposition Plan: ob Total Time Spent with Patient (Minutes): 35 History Interval history: NO acute complaints. Resting comfortably on bedside encounter eating her bed side food tray. Patient's mother was present on encounter. Patient denied any further signs and symptoms of bleeding. She states that her energy has picked back up and she feels much better. Hospitalist Physical - Physical exam Narrative exam: Physical Exam: VITAL SIGNS: Reviewed. GENERAL: The patient appears normally developed, Vital signs as documented. HEAD: No signs of head trauma. EYES: Pupils are equal. Extraocular motions intact. EARS: Hearing grossly intact. MOUTH: Oropharynx is normal. NECK: No adenopathy, no JVD. CHEST: Chest with clear breath sounds bilaterally. No wheezes, rales, or rhonchi. CARDIAC: Regular rate and rhythm. S1 and S2, without murmurs, gallops, or rubs. VASCULAR: No Edema. Peripheral pulses normal and equal in all extremities. ABDOMEN: Soft, non tender and non distended. No rebound or guarding, and no masses palpated. Bowel Sounds normal. MUSCULOSKELETAL: Good range of motion of all major joints. Extremities without clubbing, cyanosis or edema. NEUROLOGIC EXAM: Alert and oriented x 4. no focal sensory or strength deficits. PSYCHIATRIC: Mood normal. SKIN: detail exam as documented in skin assessment - Constitutional Vitals: Temp Pulse Resp BP Pulse Ox 98.7 F 74 18 110/51 98 05/17/22 04:29 05/17/22 04:29 05/17/22 04:05/17/22 04:05/17/22 08:35 Results - Labs CBC & Chem 7: 05/16/22 11:20 05/14/22 10:37 Labs: Laboratory Last Values WBC 13.3 K/mm3 (4.5-11.0) H 05/14/22 14:50 RBC 1.89 M/mm3 (3.65-5.03) L 05/14/22 14:50 Hgb 7.2 gm/dl (10.1-14.3) L 05/16/22 11:20 Hct 20.7 % (30.3-42.9) L 05/16/22 11:20 MCV 86 fl (79-97) 05/14/22 14:50 MCH 28 pg (28-32) 05/14/22 14:50 MCHC 32 % (30-34) 05/14/22 14:50 RDW 13.4 % (13.2-15.2) 05/14/22 14:50 Plt Count 141 K/mm3 (140-440) 05/14/22 14:50 Lymph % (Auto) 8.6 % (13.4-35.0) L 05/14/22 10:37 [place] % (Auto) 3.5 % (0.0-7.3) 05/14/22 10:37 Eos % (Auto) 0.4 % (0.0-4.3) 05/14/22 10:37 Baso % (Auto) 0.4 % (0.0-1.8) 05/14/22 10:37 Lymph # (Auto) 0.8 K/mm3 (1.2-5.4) L 05/14/22 10:37 [place] # (Auto) 0.3 K/mm3 (0.0-0.8) 05/14/22 10:37 Eos # (Auto) 0.0 K/mm3 (0.0-0.4) 05/14/22 10:37 Baso # (Auto) 0.0 K/mm3 (0.0-0.1) 05/14/22 10:37 Seg Neutrophils % 87.1 % (40.0-70.0) H 05/14/22 10:37 Seg Neutrophils # 8.6 K/mm3 (1.8-7.7) H 05/14/22 10:37 PT 14.0 Sec. (12.2-14.9) 05/16/22 11:20 INR 0.97 (0.87-1.13) 05/16/22 11:20 APTT 28.8 Sec. (24.2-36.6) 05/15/22 06:30 Fibrinogen 317 mg/dl (211-480) 05/15/22 06:30 Sodium 139 mmol/L (137-145) 05/14/22 10:37 Potassium 4.1 mmol/L (3.6-5.0) 05/14/22 10:37 Chloride 106.7 mmol/L (98-107) 05/14/22 10:37 Carbon Dioxide 23 mmol/L (22-30) 05/14/22 10:37 Anion Gap 13 mmol/L 05/14/22 10:37 BUN 10 mg/dL (7-17) 05/14/22 10:37 Creatinine 0.6 mg/dL (0.6-1.2) 05/14/22 10:37 Estimated GFR > 60 ml/min 05/14/22 10:37 BUN/Creatinine Ratio 17 % 05/14/22 10:37 Glucose 92 mg/dL (65-100) 05/14/22 10:37 POC Glucose 107 mg/dL (70-105) H 05/15/22 21:27 Calcium 8.4 mg/dL (8.4-10.2) 05/14/22 10:37 HCG, Quant 142.5 mIU/mL (0-4) H 05/14/22 10:44 Urine Color Yellow (Yellow) 05/14/22 10:24 Urine Turbidity Clear (Clear) 05/14/22 10:24 Urine pH 5.0 (5.0-7.0) 05/14/22 10:24 Ur Specific [place] 1.012 (1.003-1.030) 05/14/22 10:24 Urine Protein <15 mg/dl mg/dL (Negative) 05/14/22 10:24 Urine Glucose (UA) Neg mg/dL (Negative) 05/14/22 10:24 Urine Ketones Neg mg/dL (Negative) 05/14/22 10:24 Urine Blood Mod (Negative) 05/14/22 10:24 Urine Nitrite Neg (Negative) 05/14/22 10:24 Urine Bilirubin Neg (Negative) 05/14/22 10:24 Urine Urobilinogen < 2.0 mg/dL (<2.0) 05/14/22 10:24 Ur Leukocyte Esterase Neg (Negative) 05/14/22 10:24 Urine WBC (Auto) 4.0 /HPF (0.0-6.0) 05/14/22 10:24 Urine RBC (Auto) 36.0 /HPF (0.0-6.0) 05/14/22 10:24 U Epithel Cells (Auto) 1.0 /HPF (0-13.0) 05/14/22 10:24 Urine Mucus Few /HPF 05/14/22 10:24 Blood Type B POSITIVE 05/14/22 10:37 Antibody Screen Negative 05/14/22 10:37 Crossmatch See Detail 05/14/22 10:37 Thompson/IV: Voiding Method Toilet Active Medications - Current Medications Current Medications: Generic Name Dose Route Start Last Admin Trade Name Freq PRN Reason Stop Dose Admin Acetaminophen 650 mg 05/14/22 17:36 05/15/22 20:21 Acetaminophen 325 Mg Tab PO 650 mg Q4H PRN Administration Pain, Mild (1-3) Sodium Chloride 500 mls @ 0 mls/hr 05/14/22 17:29 Nacl 0.9% 500 Ml IV ONCE STEFAN As Directed Morphine Sulfate 2 mg 05/14/22 17:36 05/15/22 13:15 Morphine 2 Mg/1 Ml Inj IV 2 mg Q4H PRN Administration Pain, Moderate (4-6) Naloxone HCl 0.1 mg 05/14/22 17:36 Naloxone 0.4 Mg/1 Ml Inj IV Q2MIN PRN Res Rate </= 8 or 02 SAT < 92% Ondansetron HCl 4 mg 05/14/22 17:36 Ondansetron 4 Mg/2 Ml Inj IV Q8H PRN Nausea And Vomiting Oxycodone/Acetaminophen 2 tab 05/16/22 07:18 05/17/22 05:00 Oxycodone /Acetaminophen 5-325mg Tab PO 2 tab Q4H PRN Administration Pain, Moderate (4-6)
--- NOTE | 2022-05-17 13:35 | Progress Note ---
Assessment and Plan Pt is a 41 year old female POD#10 s/p repeat section and bilateral tubal ligation on 05/04/22, discharge home on POD #3 with an uncomplicated postoperative course who reports she was doing well at home until early this morning when she woke from her sleep in a pool of blood. She denies heavy lifting or deviating from her postoperative instructions. She was brought to the ED by EMS. The ED physician notes heavy vaginal bleeding. He reports clearing out the clots, and packing the vagina,as well as placing a thompson catheter. She had a pelvic ultrasound that was suspicious for retained products. Patient has history of Anemia and Lupus.History of fibroids. Surgical history C section x 4, Appendectomy. Patients blood pressure low initially , patient was given Phenylephrine. - Obstetrical History : 5 Para: 4 Hx # Term Pregnancies: 4 Number of Pregnancies: 0 Spontaneous Abortions: 1 Induced : 0 Number of Living Children: 4 Patient denies smoking, alcohol or drug abuse. 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 Patient alert, awake. Feeding her Baby. On room air. O2 saturation 100%. No acute respiratory distress. Denies chest pain, shortness of breath or cough. Patient afebrile. No leukocytosis. Blood pressure 104/52, Pulse 73, respirations 18. Chest xray done 05/14/22 reported no acute findings. Patients to days 05/17/22 HGB 6.5. Recommend blood transfusion to keep HGB above 7.0. - Patient Problems (1) Hypotension Current Visit: Yes Status: Acute Plan to address problem: Patient was given Phenylephrine and I/V fluids. Blood pressure improved. To days blood pressure 104/52. Patients to days HGB 6.5. Recommend blood transfusion. (2) bleeding Current Visit: Yes Status: Acute Plan to address problem: Management as per [employer]. (3) Severe anemia Current Visit: Yes Status: Acute Plan to address problem: Patients to days HGB 6.5. Recommend blood transfusion. Subjective Date of service: 05/17/22 Principal diagnosis: ABLA; SLE; H/O Congenital heart dx; Coagulopathy; S/P abd hysterectomy Interval history: Pt is a 41 year old female POD#10 s/p repeat section and bilateral tubal ligation on 05/04/22, discharge home on POD #3 with an uncomplicated postoperative course who reports she was doing well at home until early this morning when she woke from her sleep in a pool of blood. She denies heavy lifting or deviating from her postoperative instructions. She was brought to the ED by EMS. The ED physician notes heavy vaginal bleeding. He reports clearing out the clots, and packing the vagina,as well as placing a thompson catheter. She had a pelvic ultrasound that was suspicious for retained products. Patient has history of Anemia and Lupus.History of fibroids. Surgical history C section x 4, Appendectomy. - Obstetrical History : 5 Para: 4 Hx # Term Pregnancies: 4 Number of Pregnancies: 0 Spontaneous Abortions: 1 Induced : 0 Number of Living Children: 4 Patient denies smoking, alcohol or drug abuse. 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 Patient alert, awake. Feeding her Baby. On room air. O2 saturation 100%. No acute respiratory distress. Denies chest pain, shortness of breath or cough. Patient afebrile. No leukocytosis. Blood pressure 104/52, Pulse 73, respirations 18. Chest xray done 05/14/22 reported no acute findings. Patients to days 05/17/22 HGB 6.5. Recommend blood transfusion to keep HGB above 7.0. Objective Vital Signs - 12hr 05/17/22 05/17/22 05/17/22 04:29 07:33 08:35 Temperature 98.7 F 98.2 F Pulse Rate 74 73 Respiratory 18 18 Rate Blood Pressure 110/51 114/51 O2 Sat by Pulse 100 98 98 Oximetry Constitutional: no acute distress, alert Eyes: non-icteric ENT: oropharynx moist Neck: supple, no lymphadenopathy, no JVD Effort: normal Ascultation: Bilateral: diminished breath sounds Percussion: Bilateral: not dull Cardiovascular: regular rate and rhythm Gastrointestinal: normoactive bowel sounds, soft, non-tender, non-distended (protuberant) Integumentary: normal Extremities: no cyanosis, no edema, pulses normal, no ischemia or petechiae Neurologic: normal mental status, non-focal exam, pupils equal and round, motor strength normal and Psychiatric: mood appropriate, affect normal CBC and BMP: 05/17/22 18:09 05/14/22 10:37 ABG, PT/INR, D-dimer: PT/INR, D-dimer PT 14.0 Sec. (12.2-14.9) 05/16/22 11:20 INR 0.97 (0.87-1.13) 05/16/22 11:20 Abnormal lab findings: Abnormal Labs 05/14/22 05/14/22 05/14/22 10:37 10:37 10:44 WBC RBC 3.40 L Hgb 9.0 L Hct 28.8 L MCH 27 L RDW 13.0 L Lymph % (Auto) 8.6 L Lymph # (Auto) 0.8 L Seg Neutrophils % 87.1 H Seg Neutrophils # 8.6 H PT INR APTT Fibrinogen POC Glucose HCG, Quant 142.5 H Crossmatch See Detail 05/14/22 05/14/22 05/14/22 14:50 14:50 20:25 WBC 13.3 H RBC 1.89 L Hgb 5.2 L* D Hct 16.2 L* D MCH RDW Lymph % (Auto) Lymph # (Auto) Seg Neutrophils % Seg Neutrophils # PT 20.0 H 17.6 H INR 1.51 H 1.29 H APTT 58.9 H Fibrinogen 124 L* POC Glucose HCG, Quant Crossmatch 05/14/22 05/14/22 05/15/22 Unknown Unknown 05:13 WBC RBC Hgb 9.3 L D 7.7 L Hct 27.8 L D 22.6 L MCH RDW Lymph % (Auto) Lymph # (Auto) Seg Neutrophils % Seg Neutrophils # PT 17.2 H INR 1.25 H APTT Fibrinogen 195 L POC Glucose HCG, Quant Crossmatch 05/15/22 05/15/22 05/16/22 06:30 21:27 11:20 WBC RBC Hgb 7.2 L Hct 20.7 L MCH RDW Lymph % (Auto) Lymph # (Auto) Seg Neutrophils % Seg Neutrophils # PT 16.7 H INR 1.21 H APTT Fibrinogen POC Glucose 107 H HCG, Quant Crossmatch Chest x-ray: report reviewed, image reviewed Additional Studies: CHEST 1 VIEW 05/14/2022 1:52 PM INDICATION / CLINICAL INFORMATION: Dyspnea. COMPARISON: None available. FINDINGS: SUPPORT DEVICES: None. HEART / MEDIASTINUM: The heart size and pulmonary vasculature are normal. LUNGS / PLEURA: No significant pulmonary or pleural abnormality. No pneumothorax. ADDITIONAL FINDINGS: No significant additional findings. IMPRESSION: No acute findings. Allied health notes reviewed: nursing
[2022-05-17 19:35] LABS: Basophils % (Auto) 0.4 % (0.0-1.8); Eosinophils # (Auto) 0.1 K/mm3 (0.0-0.4); Eosinophils % (Auto) 1.3 % (0.0-4.3); Hemoglobin 6.5 gm/dl (10.1-14.3); Lymphocytes # (Auto) 1.2 K/mm3 (1.2-5.4); Lymphocytes % (Auto) 12.6 % (13.4-35.0); Mean Corpuscular HGB Conc 34 % (30-34); Mean Corpuscular Volume 88 fl (79-97); Monocytes # (Auto) 0.4 K/mm3 (0.0-0.8); Monocytes % (Auto) 3.8 % (0.0-7.3); Red Blood Count 2.17 M/mm3 (3.65-5.03); Red Cell Distribution Width 15.7 % (13.2-15.2)
[2022-05-17 19:43] LABS: Color,Urine Yellow (Yellow)
[2022-05-17 19:44] LABS: Bilirubin,Urine Small (Negative); Blood,Urine Trace (Negative); Protein,Urine <15 mg/dL mg/dL (Negative)
[2022-05-17 19:45] LABS: Urobilinogen,Urine 0.2 mg/dL (<2.0)
[2022-05-17 19:46] LABS: Ictotest,Urine Negative (Negative)
[2022-05-17 21:03] LABS: Platelet Count 182 K/mm3 (140-440)
[2022-05-18] MEDS: ACETAMINOPHEN 325 MG TAB PO PRN ×3 (05:02→15:10)
[2022-05-18] MEDS ORDERED: SODIUM CHLORIDE 0.9% 500 ML 500 ML IV NR (07:17)
--- NOTE | 2022-05-18 07:37 | Progress Note ---
Assessment and Plan A: POD#4 s/p supracervical abdominal hysterectomy; POD#14 status post repeat section with bilateral tubal ligation Fever Acute Blood Loss Anemia/DIC s/p 3 units PRBCs, 2 units FFP, 1 unit of albumin Lupus P: Blood cultures x2 ordered Urine culture collected Begin IV Unasyn Tylenol as needed Transfused 2 units of packed red blood cells and repeat hemoglobin and hematocrit 3 hours after transfusion of the second unit Continue to closely monitor clinical status Subjective - Subjective Date of service: 05/18/22 Principal diagnosis: Anemia; SLE; H/O Congenital heart dx; Coagulopathy; S/P abd hysterectomy Interval history: [employer] notes reviewed and appreciated. Patient reports feeling chills this morning. She was febrile to 101.3 at 1634 yesterday. She appears tired this morning. She has had a bowel movement and continues to pass flatus. She is voiding without difficulty. She denies vaginal bleeding. She has not been using her incentive spirometer very often Patient reports: appetite normal, voiding normally, pain well controlled, flatus, bowel movement, ambulating normally (minimally) : doing well Objective - Vital Signs Latest vital signs: Vital Signs Temp Pulse Resp BP Pulse Ox 05/18/22 06:36 99 F 05/18/22 00:49 100.0 F H 87 18 132/52 97 05/17/22 22:00 97 05/17/22 20:07 98.6 F 80 18 118/56 97 05/17/22 18:02 98.4 F 05/17/22 16:34 101.3 F H 82 18 122/53 98 05/17/22 12:45 99.5 F 80 18 132/57 98 05/17/22 08:35 98 Intake and Output 05/17/22 05/18/22 05/18/22 22:59 06:59 14:59 Intake Total 300 Balance 300 Intake: Intake, Free Water 300 - Exam Breasts: Present: deferred Abdomen: Present: soft. Absent: distention Extremities: Present: edema (1+) Incision: Present: intact (With benedict) - Labs Labs: Abnormal lab results 05/14/22 05/17/22 Range/Units 10:37 18:09 RBC 2.17 L (3.65-5.03) M/mm3 Hgb 6.5 L (10.1-14.3) gm/dl Hct 20.0 L (30.3-42.9) % RDW 15.7 H (13.2-15.2) % Lymph % (Auto) 12.6 L (13.4-35.0) % Seg Neutrophils % 81.9 H (40.0-70.0) % Seg Neutrophils # 8.1 H (1.8-7.7) K/mm3 Crossmatch See Detail
[2022-05-18 08:20] LABS: Hematocrit 17.6 % (30.3-42.9)
[2022-05-18] MEDS: AMPICILLIN/SULBACTA 3GM/100ML 3 GM/100 ML BAG IV SCH ×3 (08:27→20:45)
[2022-05-18] MEDS: SODIUM CHLORIDE 0.9% 1000 ML 1,000 ML IV SCH ×2 (08:27→21:13)
--- NOTE | 2022-05-18 08:49 | Progress Note ---
Assessment and Plan Assessment and plan: History of Present Illness Pt is a 41 year old female with history of lupus, POD#11 s/p repeat section and bilateral tubal ligation on 05/04/22, discharge home on POD #3 with an uncomplicated postoperative course who reports she was doing well at home until early this morning when she woke from her sleep in a pool of blood. She denies heavy lifting or deviating from her postoperative instructions. She was brought to the ED by EMS. The ED physician notes heavy vaginal bleeding. He reports clearing out the clots, and packing the vagina,as well as placing a thompson catheter. She had a pelvic ultrasound that was suspicious for retained products she subsequently was diagnosed with hemorrhage acute blood loss anemia secondary to the same she underwent a supracervical abdominal hysterectomy without complications and subsequently transferred to the ICU for closer monitoring. On were consulted for assistance with management of anemia. Patient seen and examined today doing well discussed with the small appliance assembly supervisor will be transferring the patient to IMCU for monitoring due to mild drop in hemoglobin down to 7.7 from initial 9.3 although previously 5.2 prior to transfusion. Is unclear to me the patient received an actual packed red blood cell due to the documentation but otherwise had received a hep C and is clinically doing well at this time. She denies any nausea vomiting or diarrhea she denies. Assessment: # Hemorrhage #Acute Blood Loss Anemia #Lupus #Status post abdominal hysterectomy #History of x4 Plan Continue supportive care s/p 1 unit prbc, 2 unit ffp. H&H from yesterday evening noted. 6.5, agree with 2 units prbc transfusion ordered. F/u repeat H/H. Continue to monitor for signs of active bleeding and frequent blood pressure monitoring, she remains normotensive thankfully Monitor coagulation factors DVT Prophy -SCD Avoid antiplatelets GI Prohy Recommend iron supplements on discharge. Recommend follow-up CBC as an outpatient in 2 weeks. Internal medicine service will continue to follow along while patient remains in hospital History Interval history: No acute complaints on encounter. Patient does state that she was feeling very fatigued this morning prior to transfusions. She did note blood clot in toilet yesterday overnight. This afternoon patient stated that she has not had any sa turated pads or active bleeding that she is noted. Hospitalist Physical - Physical exam Narrative exam: Physical Exam: VITAL SIGNS: Reviewed. GENERAL: The patient appears normally developed, Vital signs as documented. HEAD: No signs of head trauma. EYES: Pupils are equal. Extraocular motions intact. EARS: Hearing grossly intact. MOUTH: Oropharynx is normal. NECK: No adenopathy, no JVD. CHEST: Chest with clear breath sounds bilaterally. No wheezes, rales, or rhonchi. CARDIAC: Regular rate and rhythm. S1 and S2, without murmurs, gallops, or rubs. VASCULAR: No Edema. Peripheral pulses normal and equal in all extremities. ABDOMEN: Soft, non tender and non distended. No rebound or guarding, and no masses palpated. Bowel Sounds normal. MUSCULOSKELETAL: Good range of motion of all major joints. Extremities without clubbing, cyanosis or edema. NEUROLOGIC EXAM: Alert and oriented x 4. no focal sensory or strength deficits. PSYCHIATRIC: Mood normal. SKIN: detail exam as documented in skin assessment - Constitutional Vitals: Temp Pulse Resp BP Pulse Ox 99 F 87 18 132/52 97 05/18/22 06:36 05/18/22 00:49 05/18/22 00:49 05/18/22 00:49 05/18/22 00:49 Results - Labs CBC & Chem 7: 05/18/22 07:39 05/14/22 10:37 Labs: Laboratory Last Values WBC 9.9 K/mm3 (4.5-11.0) 05/17/22 18:09 RBC 2.17 M/mm3 (3.65-5.03) L 05/17/22 18:09 Hgb 6.0 gm/dl (10.1-14.3) L 05/18/22 07:39 Hct 17.6 % (30.3-42.9) L* 05/18/22 07:39 MCV 88 fl (79-97) 05/17/22 18:09 MCH 30 pg (28-32) 05/17/22 18:09 MCHC 34 % (30-34) 05/17/22 18:09 RDW 15.7 % (13.2-15.2) H 05/17/22 18:09 Plt Count 182 K/mm3 (140-440) 05/17/22 18:09 Lymph % (Auto) 12.6 % (13.4-35.0) L 05/17/22 18:09 [place] % (Auto) 3.8 % (0.0-7.3) 05/17/22 18:09 Eos % (Auto) 1.3 % (0.0-4.3) 05/17/22 18:09 Baso % (Auto) 0.4 % (0.0-1.8) 05/17/22 18:09 Lymph # (Auto) 1.2 K/mm3 (1.2-5.4) 05/17/22 18:09 [place] # (Auto) 0.4 K/mm3 (0.0-0.8) 05/17/22 18:09 Eos # (Auto) 0.1 K/mm3 (0.0-0.4) 05/17/22 18:09 Baso # (Auto) 0.0 K/mm3 (0.0-0.1) 05/17/22 18:09 Seg Neutrophils % 81.9 % (40.0-70.0) H 05/17/22 18:09 Seg Neutrophils # 8.1 K/mm3 (1.8-7.7) H 05/17/22 18:09 PT 14.0 Sec. (12.2-14.9) 05/16/22 11:20 INR 0.97 (0.87-1.13) 05/16/22 11:20 APTT 28.8 Sec. (24.2-36.6) 05/15/22 06:30 Fibrinogen 317 mg/dl (211-480) 05/15/22 06:30 Sodium 139 mmol/L (137-145) 05/14/22 10:37 Potassium 4.1 mmol/L (3.6-5.0) 05/14/22 10:37 Chloride 106.7 mmol/L (98-107) 05/14/22 10:37 Carbon Dioxide 23 mmol/L (22-30) 05/14/22 10:37 Anion Gap 13 mmol/L 05/14/22 10:37 BUN 10 mg/dL (7-17) 05/14/22 10:37 Creatinine 0.6 mg/dL (0.6-1.2) 05/14/22 10:37 Estimated GFR > 60 ml/min 05/14/22 10:37 BUN/Creatinine Ratio 17 % 05/14/22 10:37 Glucose 92 mg/dL (65-100) 05/14/22 10:37 POC Glucose 107 mg/dL (70-105) H 05/15/22 21:27 Calcium 8.4 mg/dL (8.4-10.2) 05/14/22 10:37 HCG, Quant 142.5 mIU/mL (0-4) H 05/14/22 10:44 Urine Color Yellow (Yellow) 05/17/22 19:00 Urine Turbidity Clear (Clear) 05/17/22 19:00 Urine pH 7.0 (5.0-7.0) 05/17/22 19:00 Ur Specific [place] 1.010 (1.003-1.030) 05/17/22 19:00 Urine Protein <15 mg/dl mg/dL (Negative) 05/17/22 19:00 Urine Glucose (UA) Negative mg/dL (Negative) 05/17/22 19:00 Urine Ketones Negative mg/dL (Negative) 05/17/22 19:00 Urine Blood Trace (Negative) 05/17/22 19:00 Urine Nitrite Negative (Negative) 05/17/22 19:00 Ur Reducing Substances Not Reportable 05/17/22 19:00 Urine Bilirubin Small (Negative) 05/17/22 19:00 Urine Ictotest Negative (Negative) 05/17/22 19:00 Urine Urobilinogen 0.2 mg/dL (<2.0) 05/17/22 19:00 Ur Leukocyte Esterase Trace (Negative) 05/17/22 19:00 Urine WBC (Auto) 3.0 /HPF (0.0-6.0) 05/17/22 19:00 Urine RBC (Auto) 8.0 /HPF (0.0-6.0) 05/17/22 19:00 U Epithel Cells (Auto) 1.0 /HPF (0-13.0) 05/14/22 10:24 Urine Mucus Few /HPF 05/14/22 10:24 SARS-CoV-2 (PCR) Negative (Negative) 05/18/22 07:45 Blood Type B POSITIVE 05/18/22 07:47 Antibody Screen Negative 05/14/22 10:37 Crossmatch See Detail 05/18/22 07:47 Thompson/IV: Voiding Method Toilet Active Medications - Current Medications Current Medications: Generic Name Dose Route Start Last Admin Trade Name Freq PRN Reason Stop Dose Admin Acetaminophen 650 mg 05/14/22 17:36 05/18/22 05:02 Acetaminophen 325 Mg Tab PO 650 mg Q4H PRN Administration Pain, Mild (1-3) Sodium Chloride 500 mls @ 0 mls/hr 05/18/22 07:17 Nacl 0.9% 500 Ml IV 05/18/22 20:00 ONCE NR As Directed Ampicillin Sodium/Sulbactam Sodium 3 gm in 100 mls @ 200 mls/hr 05/18/22 08:30 05/18/22 08:27 Unasyn/Ns 3 Gm/100 Ml IV 200 mls/hr Q6H STEFAN Administration Protocol Sodium Chloride 1,000 mls @ 125 mls/hr 05/18/22 08:00 05/18/22 08:27 Nacl 0.9% 1000 Ml IV 125 mls/hr DIRECT STEFAN Administration Morphine Sulfate 2 mg 05/14/22 17:36 05/15/22 13:15 Morphine 2 Mg/1 Ml Inj IV 2 mg Q4H PRN Administration Pain, Moderate (4-6) Naloxone HCl 0.1 mg 05/14/22 17:36 Naloxone 0.4 Mg/1 Ml Inj IV Q2MIN PRN Res Rate </= 8 or 02 SAT < 92% Ondansetron HCl 4 mg 05/14/22 17:36 Ondansetron 4 Mg/2 Ml Inj IV Q8H PRN Nausea And Vomiting Oxycodone/Acetaminophen 2 tab 05/16/22 07:18 05/17/22 15:49 Oxycodone /Acetaminophen 5-325mg Tab PO 2 tab Q4H PRN Administration Pain, Moderate (4-6)
--- NOTE | 2022-05-18 13:04 | Progress Note ---
Assessment and Plan Pt is a 41 year old female POD#10 s/p repeat section and bilateral tubal ligation on 05/04/22, discharge home on POD #3 with an uncomplicated postoperative course who reports she was doing well at home until early this morning when she woke from her sleep in a pool of blood. She denies heavy lifting or deviating from her postoperative instructions. She was brought to the ED by EMS. The ED physician notes heavy vaginal bleeding. He reports clearing out the clots, and packing the vagina,as well as placing a thompson catheter. She had a pelvic ultrasound that was suspicious for retained products. Patient has history of Anemia and Lupus.History of fibroids. Surgical history C section x 4, Appendectomy. Patients blood pressure low initially , patient was given Phenylephrine. - Obstetrical History : 5 Para: 4 Hx # Term Pregnancies: 4 Number of Pregnancies: 0 Spontaneous Abortions: 1 Induced : 0 Number of Living Children: 4 Patient denies smoking, alcohol or drug abuse. 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 Patient alert, awake. Patient receiving blood transfusion. On room air. O2 saturation 100%. No acute respiratory distress. Denies chest pain, shortness of breath or cough. Patient afebrile. No leukocytosis. Blood pressure 120/48, Pulse 72, r espirations 20. Chest xray done 05/14/22 reported no acute findings. Patient's Hgb 6.0 and Hct 17.6 today 05/18/22. Recommend blood transfusion to keep HGB above 7.0. Patient on Unasyn. - Patient Problems (1) Hypotension Current Visit: Yes Status: Acute Plan to address problem: Patient was given Phenylephrine and I/V fluids. Blood pressure improved. Today's blood pressure 120/48. Patient's HGB 6.0. Recommend blood transfusion. (2) bleeding Current Visit: Yes Status: Acute Plan to address problem: Management as per [facility]OM [facility]. (3) Severe anemia Current Visit: Yes Status: Acute Plan to address problem: Patient's HGB 6.0 today. Recommend blood transfusion. Subjective Date of service: 05/18/22 Principal diagnosis: ABLA; SLE; H/O Congenital heart dx; Coagulopathy; S/P abd hysterectomy Interval history: Pt is a 41 year old female POD#10 s/p repeat section and bilateral tubal ligation on 05/04/22, discharge home on POD #3 with an uncomplicated postoperative course who reports she was doing well at home until early this morning when she woke from her sleep in a pool of blood. She denies heavy lifting or deviating from her postoperative instructions. She was brought to the ED by EMS. The ED physician notes heavy vaginal bleeding. He reports clearing out the clots, and packing the vagina,as well as placing a thompson catheter. She had a pelvic ultrasound that was suspicious for retained products. Patient has history of Anemia and Lupus.History of fibroids. Surgical history C section x 4, Appendectomy. - Obstetrical History : 5 Para: 4 Hx # Term Pregnancies: 4 Number of Pregnancies: 0 Spontaneous Abortions: 1 Induced : 0 Number of Living Children: 4 Patient denies smoking, alcohol or drug abuse. 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 Patient alert, awake. Patient receiving blood transfusion. On room air. O2 saturation 100%. No acute respiratory distress. Denies chest pain, shortness of breath or cough. Patient afebrile. No leukocytosis. Blood pressure 120/48, Pulse 72, respirations 20. Chest xray done 05/14/22 reported no acute findings. Patient's Hgb 6.0 and Hct 17.6 today 05/18/22. Recommend blood transfusion to keep HGB above 7.0. Patient on Unasyn. Objective Vital Signs - 12hr 05/18/22 05/18/22 05/18/22 06:36 08:00 08:55 Temperature 99 F 100.4 F H Pulse Rate Respiratory 16 Rate Blood Pressure 115/68 O2 Sat by Pulse 98 100 Oximetry 05/18/22 05/18/22 05/18/22 10:20 10:35 11:05 Temperature 99.3 F 99.6 F 99.1 F Pulse Rate 71 78 70 Respiratory 18 20 20 Rate Blood Pressure 120/54 121/55 128/56 O2 Sat by Pulse 100 100 100 Oximetry 05/18/22 05/18/22 05/18/22 11:35 12:05 12:35 Temperature 98.4 F 99.2 F 98.5 F Pulse Rate 76 79 67 Respiratory 20 20 18 Rate Blood Pressure 111/50 116/42 113/42 O2 Sat by Pulse 100 100 100 Oximetry Constitutional: no acute distress, alert, other (receiving blood transfusion) Eyes: non-icteric ENT: oropharynx moist Neck: supple, no lymphadenopathy, no JVD Effort: normal Ascultation: Bilateral: diminished breath sounds Percussion: Bilateral: not dull Cardiovascular: regular rate and rhythm Gastrointestinal: normoactive bowel sounds, soft, non-tender, non-distended (protuberant) Integumentary: normal Extremities: no cyanosis, no edema, pulses normal, no ischemia or petechiae Neurologic: normal mental status, non-focal exam, pupils equal and round, motor strength normal and Psychiatric: mood appropriate, affect normal CBC and BMP: 05/18/22 07:39 05/14/22 10:37 ABG, PT/INR, D-dimer: PT/INR, D-dimer PT 14.0 Sec. (12.2-14.9) 05/16/22 11:20 INR 0.97 (0.87-1.13) 05/16/22 11:20 Abnormal lab findings: Abnormal Labs 05/14/22 05/14/22 05/14/22 10:37 10:37 10:44 WBC RBC 3.40 L Hgb 9.0 L Hct 28.8 L MCH 27 L RDW 13.0 L Lymph % (Auto) 8.6 L Lymph # (Auto) 0.8 L Seg Neutrophils % 87.1 H Seg Neutrophils # 8.6 H PT INR APTT Fibrinogen POC Glucose HCG, Quant 142.5 H Crossmatch See Detail 05/14/22 05/14/22 05/14/22 14:50 14:50 20:25 WBC 13.3 H RBC 1.89 L Hgb 5.2 L* D Hct 16.2 L* D MCH RDW Lymph % (Auto) Lymph # (Auto) Seg Neutrophils % Seg Neutrophils # PT 20.0 H 17.6 H INR 1.51 H 1.29 H APTT 58.9 H Fibrinogen 124 L* POC Glucose HCG, Quant Crossmatch 05/14/22 05/14/22 05/15/22 Unknown Unknown 05:13 WBC RBC Hgb 9.3 L D 7.7 L Hct 27.8 L D 22.6 L MCH RDW Lymph % (Auto) Lymph # (Auto) Seg Neutrophils % Seg Neutrophils # PT 17.2 H INR 1.25 H APTT Fibrinogen 195 L POC Glucose HCG, Quant Crossmatch 05/15/22 05/15/22 05/16/22 06:30 21:27 11:20 WBC RBC Hgb 7.2 L Hct 20.7 L MCH RDW Lymph % (Auto) Lymph # (Auto) Seg Neutrophils % Seg Neutrophils # PT 16.7 H INR 1.21 H APTT Fibrinogen POC Glucose 107 H HCG, Quant Crossmatch 05/17/22 05/18/22 05/18/22 18:09 07:39 07:47 WBC RBC 2.17 L Hgb 6.5 L 6.0 L Hct 20.0 L 17.6 L* MCH RDW 15.7 H Lymph % (Auto) 12.6 L Lymph # (Auto) Seg Neutrophils % 81.9 H Seg Neutrophils # 8.1 H PT INR APTT Fibrinogen POC Glucose HCG, Quant Crossmatch See Detail Allied health notes reviewed: nursing
[2022-05-18] MEDS: oxyCODONE /ACETAMINOPHEN 5-325MG TAB PO PRN (21:13)
[2022-05-18 23:55] LABS: Hematocrit 27.5 % (30.3-42.9); Hemoglobin 9.2 gm/dl (10.1-14.3)
[2022-05-19] MEDS: AMPICILLIN/SULBACTA 3GM/100ML 3 GM/100 ML BAG IV SCH ×3 (04:38→17:07)
--- NOTE | 2022-05-19 07:57 | Progress Note ---
Assessment and Plan - Patient Problems (1) bleeding Current Visit: Yes Status: Acute Plan to address problem: Routine postoperative care Discharge home tomorrow if patient remains afebrile Subjective - Subjective Principal diagnosis: ABLA; SLE; H/O Congenital heart dx; Coagulopathy; S/P abd hysterectomy Interval history: The patient is postop day #5 s/p supracervical hysterectomy for hemorrhage. The patient has remained afebrile for the last 24 hours. She reports feeling better. She is tolerating regular diet and ambulating without difficulty. Patient reports: appetite normal, voiding normally, pain well controlled : doing well Objective - Vital Signs Latest vital signs: Vital Signs Temp Pulse Resp BP BP Pulse Ox 05/19/22 04:00 98.8 F 66 18 119/79 05/19/22 00:00 98.7 F 72 16 115/75 05/18/22 22:00 97 05/18/22 20:00 98.6 F 74 16 121/75 05/18/22 15:50 98.5 F 70 20 136/61 100 05/18/22 15:16 99.3 F 70 18 129/40 05/18/22 14:50 99.6 F 70 20 140/64 100 05/18/22 14:20 99.0 F 69 20 131/65 100 05/18/22 13:50 98.5 F 78 20 113/54 100 05/18/22 13:35 98.5 F 72 20 120/48 100 05/18/22 13:05 98.5 F 69 20 121/47 100 05/18/22 12:35 98.5 F 67 18 113/42 100 05/18/22 12:05 99.2 F 79 20 116/42 100 05/18/22 11:35 98.4 F 76 20 111/50 100 05/18/22 11:05 99.1 F 70 20 128/56 100 05/18/22 10:35 99.6 F 78 20 121/55 100 05/18/22 10:20 99.3 F 71 18 120/54 100 05/18/22 08:55 100.4 F H 16 115/68 100 05/18/22 08:00 98 Intake and Output 05/18/22 05/19/22 05/19/22 22:59 06:59 14:59 Intake Total 1450 200 Balance 1450 200 Intake: IV 1200 NaCl 0.9% 1000 ml 1,000 1000 ml @ 125 mls/hr IV DIRECT STEFAN Rx#:[id number] UNASYN/NS 3 GM/100 ML 3 200 gm In 100 ml @ 200 mls/hr IV Q6H [facility] Rx#:[id number] Oral 200 Blood Product 250 Leukoreduced Red Blood 250 Cells Unit [id number] Other: Total, Intake Amount 200 Voiding Method Toilet # Voids Void 1 - Labs Labs: Abnormal lab results 05/18/22 05/18/22 05/18/22 Range/Units 07:39 07:47 23:23 Hgb 6.0 L 9.2 L D (10.1-14.3) gm/dl Hct 17.6 L* 27.5 L D (30.3-42.9) % Crossmatch See Detail
--- NOTE | 2022-05-19 08:04 | Progress Note ---
Assessment and Plan Assessment and plan: History of Present Illness Pt is a 41 year old female with history of lupus, POD#11 s/p repeat section and bilateral tubal ligation on 05/04/22, discharge home on POD #3 with an uncomplicated postoperative course who reports she was doing well at home until early this morning when she woke from her sleep in a pool of blood. She denies heavy lifting or deviating from her postoperative instructions. She was brought to the ED by EMS. The ED physician notes heavy vaginal bleeding. He reports clearing out the clots, and packing the vagina,as well as placing a thompson catheter. She had a pelvic ultrasound that was suspicious for retained products she subsequently was diagnosed with hemorrhage acute blood loss anemia secondary to the same she underwent a supracervical abdominal hysterectomy without complications and subsequently transferred to the ICU for closer monitoring. On were consulted for assistance with management of anemia. Patient seen and examined today doing well discussed with the clinical informaticist will be transferring the patient to IMCU for monitoring due to mild drop in hemoglobin down to 7.7 from initial 9.3 although previously 5.2 prior to transfusion. Is unclear to me the patient received an actual packed red blood cell due to the documentation but otherwise had received a hep C and is clinically doing well at this time. She denies any nausea vomiting or diarrhea she denies. Assessment: # Hemorrhage #Acute Blood Loss Anemia #Lupus #Status post abdominal hysterectomy #History of x4 Plan Continue supportive care s/p 1 unit prbc, 2 unit ffp. H&H from 04/18 evening noted. 6.5, s/p 2 units addtl prbc transfusion ordered. Repeat Hgb: 9.2 Continue to monitor for signs of active bleeding and frequent blood pressure monitoring, she remains normotensive thankfully Monitor coagulation factors DVT Prophy -SCD Avoid antiplatelets GI Prohy Medically clear for d/c from IMS standpoint. Recommend iron supplements on discharge. Recommend follow-up CBC as an outpatient in 2 weeks. History Interval history: No overnight events or complaints. Hospitalist Physical - Physical exam Narrative exam: Physical Exam: VITAL SIGNS: Reviewed. GENERAL: The patient appears normally developed, Vital signs as documented. HEAD: No signs of head trauma. EYES: Pupils are equal. Extraocular motions intact. EARS: Hearing grossly intact. MOUTH: Oropharynx is normal. NECK: No adenopathy, no JVD. CHEST: Chest with clear breath sounds bilaterally. No wheezes, rales, or rhonchi. CARDIAC: Regular rate and rhythm. S1 and S2, without murmurs, gallops, or rubs. VASCULAR: No Edema. Peripheral pulses normal and equal in all extremities. ABDOMEN: Soft, non tender and non distended. No rebound or guarding, and no masses palpated. Bowel Sounds normal. MUSCULOSKELETAL: Good range of motion of all major joints. Extremities without clubbing, cyanosis or edema. NEUROLOGIC EXAM: Alert and oriented x 4. no focal sensory or strength deficits. PSYCHIATRIC: Mood normal. SKIN: detail exam as documented in skin assessment - Constitutional Vitals: Temp Pulse Resp BP Pulse Ox 98.8 F 66 18 119/79 97 05/19/22 04:00 05/19/22 04:00 05/19/22 04:00 05/19/22 04:00 05/18/22 22:00 Results - Labs CBC & Chem 7: 05/18/22 23:23 05/14/22 10:37 Labs: Laboratory Last Values WBC 9.9 K/mm3 (4.5-11.0) 05/17/22 18:09 RBC 2.17 M/mm3 (3.65-5.03) L 05/17/22 18:09 Hgb 9.2 gm/dl (10.1-14.3) L D 05/18/22 23:23 Hct 27.5 % (30.3-42.9) L D 05/18/22 23:23 MCV 88 fl (79-97) 05/17/22 18:09 MCH 30 pg (28-32) 05/17/22 18:09 MCHC 34 % (30-34) 05/17/22 18:09 RDW 15.7 % (13.2-15.2) H 05/17/22 18:09 Plt Count 182 K/mm3 (140-440) 05/17/22 18:09 Lymph % (Auto) 12.6 % (13.4-35.0) L 05/17/22 18:09 [place] % (Auto) 3.8 % (0.0-7.3) 05/17/22 18:09 Eos % (Auto) 1.3 % (0.0-4.3) 05/17/22 18:09 Baso % (Auto) 0.4 % (0.0-1.8) 05/17/22 18:09 Lymph # (Auto) 1.2 K/mm3 (1.2-5.4) 05/17/22 18:09 [place] # (Auto) 0.4 K/mm3 (0.0-0.8) 05/17/22 18:09 Eos # (Auto) 0.1 K/mm3 (0.0-0.4) 05/17/22 18:09 Baso # (Auto) 0.0 K/mm3 (0.0-0.1) 05/17/22 18:09 Seg Neutrophils % 81.9 % (40.0-70.0) H 05/17/22 18:09 Seg Neutrophils # 8.1 K/mm3 (1.8-7.7) H 05/17/22 18:09 PT 14.0 Sec. (12.2-14.9) 05/16/22 11:20 INR 0.97 (0.87-1.13) 05/16/22 11:20 APTT 28.8 Sec. (24.2-36.6) 05/15/22 06:30 Fibrinogen 317 mg/dl (211-480) 05/15/22 06:30 Sodium 139 mmol/L (137-145) 05/14/22 10:37 Potassium 4.1 mmol/L (3.6-5.0) 05/14/22 10:37 Chloride 106.7 mmol/L (98-107) 05/14/22 10:37 Carbon Dioxide 23 mmol/L (22-30) 05/14/22 10:37 Anion Gap 13 mmol/L 05/14/22 10:37 BUN 10 mg/dL (7-17) 05/14/22 10:37 Creatinine 0.6 mg/dL (0.6-1.2) 05/14/22 10:37 Estimated GFR > 60 ml/min 05/14/22 10:37 BUN/Creatinine Ratio 17 % 05/14/22 10:37 Glucose 92 mg/dL (65-100) 05/14/22 10:37 POC Glucose 107 mg/dL (70-105) H 05/15/22 21:27 Calcium 8.4 mg/dL (8.4-10.2) 05/14/22 10:37 HCG, Quant 142.5 mIU/mL (0-4) H 05/14/22 10:44 Urine Color Yellow (Yellow) 05/17/22 19:00 Urine Turbidity Clear (Clear) 05/17/22 19:00 Urine pH 7.0 (5.0-7.0) 05/17/22 19:00 Ur Specific [place] 1.010 (1.003-1.030) 05/17/22 19:00 Urine Protein <15 mg/dl mg/dL (Negative) 05/17/22 19:00 Urine Glucose (UA) Negative mg/dL (Negative) 05/17/22 19:00 Urine Ketones Negative mg/dL (Negative) 05/17/22 19:00 Urine Blood Trace (Negative) 05/17/22 19:00 Urine Nitrite Negative (Negative) 05/17/22 19:00 Ur Reducing Substances Not Reportable 05/17/22 19:00 Urine Bilirubin Small (Negative) 05/17/22 19:00 Urine Ictotest Negative (Negative) 05/17/22 19:00 Urine Urobilinogen 0.2 mg/dL (<2.0) 05/17/22 19:00 Ur Leukocyte Esterase Trace (Negative) 05/17/22 19:00 Urine WBC (Auto) 3.0 /HPF (0.0-6.0) 05/17/22 19:00 Urine RBC (Auto) 8.0 /HPF (0.0-6.0) 05/17/22 19:00 U Epithel Cells (Auto) 1.0 /HPF (0-13.0) 05/14/22 10:24 Urine Mucus Few /HPF 05/14/22 10:24 SARS-CoV-2 (PCR) Negative (Negative) 05/18/22 07:45 Blood Type B POSITIVE 05/18/22 07:47 Antibody Screen Negative 05/18/22 07:47 Crossmatch See Detail 05/18/22 07:47 Microbiology: Microbiology 05/18/22 07:39 Peripheral/Venous Blood Culture - Preliminary Culture in Progress 05/18/22 07:39 Peripheral/Venous Blood Culture - Preliminary Culture in Progress Thompson/IV: Voiding Method Toilet Active Medications - Current Medications Current Medications: Generic Name Dose Route Start Last Admin Trade Name Freq PRN Reason Stop Dose Admin Acetaminophen 650 mg 05/14/22 17:36 05/18/22 15:10 Acetaminophen 325 Mg Tab PO 650 mg Q4H PRN Administration Pain, Mild (1-3) Ampicillin Sodium/Sulbactam Sodium 3 gm in 100 mls @ 200 mls/hr 05/18/22 08:30 05/19/22 04:38 Unasyn/Ns 3 Gm/100 Ml IV 200 mls/hr Q6H STEFAN Administration Protocol Sodium Chloride 1,000 mls @ 125 mls/hr 05/18/22 08:00 05/18/22 21:13 Nacl 0.9% 1000 Ml IV 125 mls/hr DIRECT STEFAN Administration Morphine Sulfate 2 mg 05/14/22 17:36 05/15/22 13:15 Morphine 2 Mg/1 Ml Inj IV 2 mg Q4H PRN Administration Pain, Moderate (4-6) Naloxone HCl 0.1 mg 05/14/22 17:36 Naloxone 0.4 Mg/1 Ml Inj IV Q2MIN PRN Res Rate </= 8 or 02 SAT < 92% Ondansetron HCl 4 mg 05/14/22 17:36 Ondansetron 4 Mg/2 Ml Inj IV Q8H PRN Nausea And Vomiting Oxycodone/Acetaminophen 2 tab 05/16/22 07:18 05/18/22 21:13 Oxycodone /Acetaminophen 5-325mg Tab PO 2 tab Q4H PRN Administration Pain, Moderate (4-6)
[2022-05-19] MEDS: ACETAMINOPHEN 325 MG TAB PO PRN (11:34)
--- NOTE | 2022-05-19 12:47 | Progress Note ---
Assessment and Plan Pt is a 41 year old female POD#10 s/p repeat section and bilateral tubal ligation on 05/04/22, discharge home on POD #3 with an uncomplicated postoperative course who reports she was doing well at home until early this morning when she woke from her sleep in a pool of blood. She denies heavy lifting or deviating from her postoperative instructions. She was brought to the ED by EMS. The ED physician notes heavy vaginal bleeding. He reports clearing out the clots, and packing the vagina,as well as placing a thompson catheter. She had a pelvic ultrasound that was suspicious for retained products. Patient has history of Anemia and Lupus.History of fibroids. Surgical history C section x 4, Appendectomy. Patients blood pressure low initially , patient was given Phenylephrine. - Obstetrical History : 5 Para: 4 Hx # Term Pregnancies: 4 Number of Pregnancies: 0 Spontaneous Abortions: 1 Induced : 0 Number of Living Children: 4 Patient denies smoking, alcohol or drug abuse. 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 Patient alert, awake. Patient sitting upright on side of bed on room air. O2 saturation 98%. No acute respiratory distress. Denies chest pain, shortness of breath or cough. Patient febrile. No leukocytosis. Blood pressure 134/63, Pulse 82, respirations 32. Patient's blood cultures showed no growth for 24 hours. 05/19/22 Chest xray done 05/14/22 reported no acute findings. Patient received blood transfusion yesterday. Patient's Hgb 9.2 and Hct 27.5 today 05/19/22. Patient on Unasyn. Patient's mother present at bedside. - Patient Problems (1) Hypotension Current Visit: Yes Status: Acute Plan to address problem: Patient was given Phenylephrine and I/V fluids. Blood pressure improved. Today's blood pressure 134/63. Patient received blood transfusion on 05/18/22. Patient's HGB 9.2. (2) bleeding Current Visit: Yes Status: Acute Plan to address problem: Management as per ARNP. (3) Severe anemia Current Visit: Yes Status: Acute Plan to address problem: Patient's HGB 9.2 today. Patient received blood transfusion on 05/18/22. Subjective Date of service: 05/19/22 Principal diagnosis: ABLA; SLE; H/O Congenital heart dx; Coagulopathy; S/P abd hysterectomy Interval history: Pt is a 41 year old female POD#10 s/p repeat section and bilateral tubal ligation on 05/04/22, discharge home on POD #3 with an u ncomplicated postoperative course who reports she was doing well at home until early this morning when she woke from her sleep in a pool of blood. She denies heavy lifting or deviating from her postoperative instructions. She was brought to the ED by EMS. The ED physician notes heavy vaginal bleeding. He reports clearing out the clots, and packing the vagina,as well as placing a thompson catheter. She had a pelvic ultrasound that was suspicious for retained products. Patient has history of Anemia and Lupus.History of fibroids. Surgical history C section x 4, Appendectomy. - Obstetrical History : 5 Para: 4 Hx # Term Pregnancies: 4 Number of Pregnancies: 0 Spontaneous Abortions: 1 Induced : 0 Number of Living Children: 4 Patient denies smoking, alcohol or drug abuse. 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 Patient alert, awake. Patient sitting upright on side of bed on room air. O2 saturation 98%. No acute respiratory distress. Denies chest pain, shortness of breath or cough. Patient febrile. No leukocytosis. Blood pressure 134/63, Pulse 82, respirations 32. Patient's blood cultures showed no growth for 24 hours. 05/19/22 Chest xray done 05/14/22 reported no acute findings. Patient received blood transfusion yesterday. Patient's Hgb 9.2 and Hct 27.5 today 05/19/22. Patient on Unasyn. Patient's mother present at bedside. Objective Vital Signs - 12hr 05/19/22 05/19/22 05/19/22 04:00 07:11 07:15 Temperature 98.8 F 99.2 F Pulse Rate 66 78 Respiratory 18 20 Rate Blood Pressure 126/54 Blood Pressure 119/79 [Right] O2 Sat by Pulse 97 98 Oximetry 05/19/22 11:28 Temperature 101.7 F H Pulse Rate 82 Respiratory 32 H Rate Blood Pressure 134/63 Blood Pressure [Right] O2 Sat by Pulse 98 Oximetry Constitutional: no acute distress, alert Eyes: non-icteric ENT: oropharynx moist Neck: supple, no lymphadenopathy, no JVD Effort: normal Ascultation: Bilateral: diminished breath sounds Percussion: Bilateral: not dull Cardiovascular: regular rate and rhythm Gastrointestinal: normoactive bowel sounds, soft, non-tender, non-distended (protuberant) Integumentary: normal Extremities: no cyanosis, no edema, pulses normal, no ischemia or petechiae Neurologic: normal mental status, non-focal exam, pupils equal and round, motor strength normal and Psychiatric: mood appropriate, affect normal CBC and BMP: 05/18/22 23:23 05/14/22 10:37 ABG, PT/INR, D-dimer: PT/INR, D-dimer PT 14.0 Sec. (12.2-14.9) 05/16/22 11:20 INR 0.97 (0.87-1.13) 05/16/22 11:20 Abnormal lab findings: Abnormal Labs 05/14/22 05/14/22 05/14/22 10:37 10:37 10:44 WBC RBC 3.40 L Hgb 9.0 L Hct 28.8 L MCH 27 L RDW 13.0 L Lymph % (Auto) 8.6 L Lymph # (Auto) 0.8 L Seg Neutrophils % 87.1 H Seg Neutrophils # 8.6 H PT INR APTT Fibrinogen POC Glucose HCG, Quant 142.5 H Crossmatch See Detail 05/14/22 05/14/22 05/14/22 14:50 14:50 20:25 WBC 13.3 H RBC 1.89 L Hgb 5.2 L* D Hct 16.2 L* D MCH RDW Lymph % (Auto) Lymph # (Auto) Seg Neutrophils % Seg Neutrophils # PT 20.0 H 17.6 H INR 1.51 H 1.29 H APTT 58.9 H Fibrinogen 124 L* POC Glucose HCG, Quant Crossmatch 05/14/22 05/14/22 05/15/22 Unknown Unknown 05:13 WBC RBC Hgb 9.3 L D 7.7 L Hct 27.8 L D 22.6 L MCH RDW Lymph % (Auto) Lymph # (Auto) Seg Neutrophils % Seg Neutrophils # PT 17.2 H INR 1.25 H APTT Fibrinogen 195 L POC Glucose HCG, Quant Crossmatch 05/15/22 05/15/2222 06:30 21:27 11:20 WBC RBC Hgb 7.2 L Hct 20.7 L MCH RDW Lymph % (Auto) Lymph # (Auto) Seg Neutrophils % Seg Neutrophils # PT 16.7 H INR 1.21 H APTT Fibrinogen POC Glucose 107 H HCG, Quant Crossmatch 05/17/22 05/18/22 05/18/22 18:09 07:39 07:47 WBC RBC 2.17 L Hgb 6.5 L 6.0 L Hct 20.0 L 17.6 L* MCH RDW 15.7 H Lymph % (Auto) 12.6 L Lymph # (Auto) Seg Neutrophils % 81.9 H Seg Neutrophils # 8.1 H PT INR APTT Fibrinogen POC Glucose HCG, Quant Crossmatch See Detail 05/18/22 23:23 WBC RBC Hgb 9.2 L D Hct 27.5 L D MCH RDW Lymph % (Auto) Lymph # (Auto) Seg Neutrophils % Seg Neutrophils # PT INR APTT Fibrinogen POC Glucose HCG, Quant Crossmatch Allied health notes reviewed: nursing
[2022-05-20] MEDS: AMPICILLIN/SULBACTA 3GM/100ML 3 GM/100 ML BAG IV SCH ×3 (00:03→09:13)
[2022-05-20] MEDS: oxyCODONE /ACETAMINOPHEN 5-325MG TAB PO PRN (00:15)
[2022-05-20] MEDS: SODIUM CHLORIDE 0.9% 1000 ML 1,000 ML IV SCH (09:13)
--- NOTE | 2022-05-20 09:56 | Progress Note ---
Assessment and Plan - Patient Problems (1) bleeding Current Visit: Yes Status: Acute Plan to address problem: Routine postoperative care Discharge home Subjective - Subjective Date of service: 05/20/22 Principal diagnosis: ABLA; SLE; H/O Congenital heart dx; Coagulopathy; S/P abd hysterectomy Interval history: The patient is postop day #6 s/p supracervical hysterectomy for hemorrhage. Patient had a temp spike yesterday around 1100. She has remained afebrile since that time. She is tolerating regular diet and her pain is better controlled. Patient reports: appetite normal, voiding normally, pain well controlled Objective - Vital Signs Latest vital signs: Vital Signs Temp Pulse Resp BP Pulse Ox 05/20/22 07:59 98.2 F 68 19 119/53 99 05/20/22 04:26 98.1 F 66 18 133/63 98 05/20/22 00:52 99.0 F 86 18 122/52 97 05/19/22 22:45 97 05/19/22 20:05 99.5 F 83 18 126/57 97 05/19/22 16:05 98.5 F 73 20 124/42 100 05/19/22 14:08 99.3 F 05/19/22 11:28 101.7 F H 82 32 H 134/63 98 Intake and Output 05/19/22 05/20/22 05/20/22 22:59 06:59 14:59 Intake Total 850 400 Balance 850 400 Intake: IV 100 200 UNASYN/NS 3 GM/100 ML 3 100 200 gm In 100 ml @ 200 mls/hr IV Q6H [facility] Rx#:[id number] Oral 750 200 Other: Total, Intake Amount 200 200 Voiding Method Toilet # Voids Void 1 # Bowel Movements 1 Weight 76.657 kg - Exam Incision: Present: normal
--- NOTE | 2022-05-20 09:58 | Discharge Summary ---
Providers - Providers Date of Admission: 05/14/22 17:36 Date of discharge: 05/20/22 Attending physician: TATI AYALA 05/14/22 17:40 Consult to Physician [CONS] Routine Comment: Consulting Provider: BELKIS GIVENS Physician Instructions: Reason For Exam: s/p supracervical hysterectomy, DIC 05/15/22 14:07 Consult to Physician [CONS] Routine Comment: Consulting Provider: DEBBI MCGINNIS Physician Instructions: Reason For Exam: SLE; Acute Blood Loss Anemia Primary care physician: INTELLECTUAL PROPERTY MANAGER Hospitalization Reason for admission: other ( hemorrhage) Procedure: other (Supracervical hysterectomy) Incision: normal Discharge diagnosis: other ( hemorrhage) Hospital course: The patient was readmitted secondary to significant vaginal bleeding. The patient had a recent history of a delivery and represented with uterine atony and hemorrhage. The patient underwent a supracervical hysterectomy and was transfused blood products. She had correction of her DIC. Her postoperative course was complicated by intermittent febrile episodes for which the patient received IV antibiotics. Condition at discharge: Good Disposition: 01 HOME / SELF CARE / HOMELESS - Discharge Diagnoses (1) bleeding Status: Acute Plan - Discharge Medications Prescriptions: cephALEXin [Keflex] 500 mg PO Q12HR #14 cap oxyCODONE /ACETAMINOPHEN [Percocet 5/325] 1 tab PO Q6HR PRN #30 tablet PRN Reason: Pain - Provider Discharge Summary Activity: no sex for 6 weeks, no heavy lifting 4 weeks, no strenuous exercise Diet: routine Instructions: routine Additional instructions: [] Smoking cessation referral if applicable(refer to patient education folder for contact #) [] Refer to [facility] Booklet Call your doctor immediately for: * Fever > 100.5 * Heavy vaginal bleeding ( >1 pad per hour) * Severe persistent headache * Shortness of breath * Reddened, hot, painful area to leg or breast * Drainage or odor from incision. * Keep incision clean and dry at all times and follow doctor's instructions regarding bathing/showering Schedule follow-up with Dr. Ayala in 1 week - Follow up plan Follow up: TATI AYALA MD [Staff Physician] - 7 Days
[2022-05-20 11:27] LABS: Hematocrit 31.3 % (30.3-42.9); Hemoglobin 10.1 gm/dl (10.1-14.3)
--- NOTE | 2022-05-20 12:05 | Progress Note ---
Assessment and Plan Assessment and plan: Pt is a 41 year old female with history of lupus, POD#11 s/p repeat section and bilateral tubal ligation on 05/04/22, discharge home on POD #3 with an uncomplicated postoperative course who reports she was doing well at home until early this morning when she woke from her sleep in a pool of blood. She denies heavy lifting or deviating from her postoperative instructions. She was brought to the ED by EMS. The ED physician notes heavy vaginal bleeding. He reports clearing out the clots, and packing the vagina,as well as placing a thompson catheter. She had a pelvic ultrasound that was suspicious for retained products she subsequently was diagnosed with hemorrhage acute blood loss anemia secondary to the same she underwent a supracervical abdominal hysterectomy without complications and subsequently transferred to the ICU for closer monitoring. On were consulted for assistance with management of anemia. Patient seen and examined today doing well discussed with the transit worker will be transferring the patient to IMCU for monitoring due to mild drop in hemoglobin down to 7.7 from initial 9.3 although previously 5.2 prior to transfusion. Is unclear to me the patient received an actual packed red blood cell due to the documentation but otherwise had received a hep C and is clinically doing well at this time. She denies any nausea vomiting or diarrhea she denies. Assessment: # Hemorrhage #Acute Blood Loss Anemia #Lupus #Status post abdominal hysterectomy #History of x4 Plan Continue supportive care Repeat H&H today remains stable s/p 1 unit prbc, 2 unit ffp. H&H from 04/18 evening noted. 6.5, s/p 2 units addtl prbc transfusion ordered. Repeat Hgb: 9.2 Continue to monitor for signs of active bleeding and frequent blood pressure monitoring, she remains normotensive thankfully Monitor coagulation factors DVT Prophy -SCD Avoid antiplatelets GI Prohy Medically clear for d/c from IMS standpoint. Recommend iron supplements on discharge. Recommend follow-up CBC as an outpatient in 2 weeks. History Interval history: Patient was seen and examined by me no acute distress ambulating no overt bleeding noted. Hospitalist Physical - Physical exam Narrative exam: VITAL SIGNS: Reviewed. GENERAL: The patient appears normally developed, Vital signs as documented. HEAD: No signs of head trauma. EYES: Pupils are equal. Extraocular motions intact. EARS: Hearing grossly intact. MOUTH: Oropharynx is normal. NECK: No adenopathy, no JVD. CHEST: Chest with clear breath sounds bilaterally. No wheezes, rales, or rhonchi. CARDIAC: Regular rate and rhythm. S1 and S2, without murmurs, gallops, or rubs. VASCULAR: No Edema. Peripheral pulses normal and equal in all extremities. ABDOMEN: Soft, dressing below quadrant area with drainage. Non tender and non distended. No rebound or guarding, and no masses palpated. Bowel Sounds normal. MUSCULOSKELETAL: Good range of motion of all major joints. Extremities without clubbing, cyanosis or edema. NEUROLOGIC EXAM: Alert and oriented x 3 No focal sensory or strength deficits. Speech normal. Follows commands. PSYCHIATRIC: Mood normal. SKIN: detail exam as documented in skin assessment - Constitutional Vitals: Temp Pulse Resp BP Pulse Ox 98.2 F 68 19 119/53 97 05/20/22 07:59 05/20/22 07:59 05/20/22 07:59 05/20/22 07:59 05/20/22 10:00 Results - Labs CBC & Chem 7: 05/20/22 11:14 05/14/22 10:37 Labs: Laboratory Last Values WBC 9.9 K/mm3 (4.5-11.0) 05/17/22 18:09 RBC 2.17 M/mm3 (3.65-5.03) L 05/17/22 18:09 Hgb 10.1 gm/dl (10.1-14.3) 05/20/22 11:14 Hct 31.3 % (30.3-42.9) 05/20/22 11:14 MCV 88 fl (79-97) 05/17/22 18:09 MCH 30 pg (28-32) 05/17/22 18:09 MCHC 34 % (30-34) 05/17/22 18:09 RDW 15.7 % (13.2-15.2) H 05/17/22 18:09 Plt Count 182 K/mm3 (140-440) 05/17/22 18:09 Lymph % (Auto) 12.6 % (13.4-35.0) L 05/17/22 18:09 Robertson % (Auto) 3.8 % (0.0-7.3) 05/17/22 18:09 Eos % (Auto) 1.3 % (0.0-4.3) 05/17/22 18:09 Baso % (Auto) 0.4 % (0.0-1.8) 05/17/22 18:09 Lymph # (Auto) 1.2 K/mm3 (1.2-5.4) 05/17/22 18:09 Robertson # (Auto) 0.4 K/mm3 (0.0-0.8) 05/17/22 18:09 Eos # (Auto) 0.1 K/mm3 (0.0-0.4) 05/17/22 18:09 Baso # (Auto) 0.0 K/mm3 (0.0-0.1) 05/17/22 18:09 Seg Neutrophils % 81.9 % (40.0-70.0) H 05/17/22 18:09 Seg Neutrophils # 8.1 K/mm3 (1.8-7.7) H 05/17/22 18:09 PT 14.0 Sec. (12.2-14.9) 05/16/22 11:20 INR 0.97 (0.87-1.13) 05/16/22 11:20 APTT 28.8 Sec. (24.2-36.6) 05/15/22 06:30 Fibrinogen 317 mg/dl (211-480) 05/15/22 06:30 Sodium 139 mmol/L (137-145) 05/14/22 10:37 Potassium 4.1 mmol/L (3.6-5.0) 05/14/22 10:37 Chloride 106.7 mmol/L (98-107) 05/14/22 10:37 Carbon Dioxide 23 mmol/L (22-30) 05/14/22 10:37 Anion Gap 13 mmol/L 05/14/22 10:37 BUN 10 mg/dL (7-17) 05/14/22 10:37 Creatinine 0.6 mg/dL (0.6-1.2) 05/14/22 10:37 Estimated GFR > 60 ml/min 05/14/22 10:37 BUN/Creatinine Ratio 17 % 05/14/22 10:37 Glucose 92 mg/dL (65-100) 05/14/22 10:37 POC Glucose 107 mg/dL (70-105) H 05/15/22 21:27 Calcium 8.4 mg/dL (8.4-10.2) 05/14/22 10:37 HCG, Quant 142.5 mIU/mL (0-4) H 05/14/22 10:44 Urine Color Yellow (Yellow) 05/17/22 19:00 Urine Turbidity Clear (Clear) 05/17/22 19:00 Urine pH 7.0 (5.0-7.0) 05/17/22 19:00 Ur Specific Haw[place] 1.010 (1.003-1.030) 05/17/22 19:00 Urine Protein <15 mg/dl mg/dL (Negative) 05/17/22 19:00 Urine Glucose (UA) Negative mg/dL (Negative) 05/17/22 19:00 Urine Ketones Negative mg/dL (Negative) 05/17/22 19:00 Urine Blood Trace (Negative) 05/17/22 19:00 Urine Nitrite Negative (Negative) 05/17/22 19:00 Ur Reducing Substances Not Reportable 05/17/22 19:00 Urine Bilirubin Small (Negative) 05/17/22 19:00 Urine Ictotest Negative (Negative) 05/17/22 19:00 Urine Urobilinogen 0.2 mg/dL (<2.0) 05/17/22 19:00 Ur Leukocyte Esterase Trace (Negative) 05/17/22 19:00 Urine WBC (Auto) 3.0 /HPF (0.0-6.0) 05/17/22 19:00 Urine RBC (Auto) 8.0 /HPF (0.0-6.0) 05/17/22 19:00 U Epithel Cells (Auto) 1.0 /HPF (0-13.0) 05/14/22 10:24 Urine Mucus Few /HPF 05/14/22 10:24 SARS-CoV-2 (PCR) Negative (Negative) 05/18/22 07:45 Blood Type B POSITIVE 05/18/22 07:47 Antibody Screen Negative 05/18/22 07:47 Crossmatch See Detail 05/18/22 07:47 Microbiology: Microbiology 05/18/22 07:39 Peripheral/Venous Blood Culture - Preliminary NO GROWTH AFTER 48 HOURS 05/18/22 07:39 Peripheral/Venous Blood Culture - Preliminary NO GROWTH AFTER 48 HOURS 05/17/22 19:00 Urine,Clean Catch Urine Culture - Preliminary Thompson/IV: Voiding Method Toilet Active Medications - Current Medications Current Medications: Generic Name Dose Route Start Last Admin Trade Name Freq PRN Reason Stop Dose Admin Acetaminophen 650 mg 05/14/22 17:36 05/19/22 11:34 Acetaminophen 325 Mg Tab PO 650 mg Q4H PRN Administration Pain, Mild (1-3) Ampicillin Sodium/Sulbactam Sodium 3 gm in 100 mls @ 200 mls/hr 05/18/22 08:30 05/20/22 09:13 Unasyn/Ns 3 Gm/100 Ml IV 200 mls/hr Q6H STEFAN Administration Protocol Sodium Chloride 1,000 mls @ 125 mls/hr 05/18/22 08:00 05/20/22 09:13 Nacl 0.9% 1000 Ml IV 125 mls/hr DIRECT STEFAN Administration Morphine Sulfate 2 mg 05/14/22 17:36 05/15/22 13:15 Morphine 2 Mg/1 Ml Inj IV 2 mg Q4H PRN Administration Pain, Moderate (4-6) Naloxone HCl 0.1 mg 05/14/22 17:36 Naloxone 0.4 Mg/1 Ml Inj IV Q2MIN PRN Res Rate </= 8 or 02 SAT < 92% Ondansetron HCl 4 mg 05/14/22 17:36 Ondansetron 4 Mg/2 Ml Inj IV Q8H PRN Nausea And Vomiting Oxycodone/Acetaminophen 2 tab 05/16/22 07:18 05/20/22 00:15 Oxycodone /Acetaminophen 5-325mg Tab PO 2 tab Q4H PRN Administration Pain, Moderate (4-6) Nutrition/Malnutrition Assess - Dietary Evaluation Nutrition/Malnutrition Findings: Nutrition Notes Start: 05/19/22 15:28 Freq: Status: Active Protocol: Document 05/19/22 15:28 STEFAN (Rec: 05/19/22 15:51 STEFAN [id number]) Nutrition Notes Need for Assessment generated from: LOS Initial or Follow up Assessment Other Pertinent Diagnosis Hysterectomy s/p Vaginal Bleeding & Uterine Atony, Anemia, Lupus. Current Diet Regular Diet (since L 05/16). Labs/Tests 05/19: WNL. Pertinent Medications 05/19: Nutritionally unremarkable. 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 Weight Status Overweight Subjective/Other Information RD consult for LOS assessment. Pt's PO intake of meals has been Good (100%), and well tolerated, according to ADL notes. Pt is on Room Air, O2 saturation @ 98%, according to Physical Assessment History notes. Pt presents and abdominal surgical wound as sign os concern for skin risk at the time, according to Physical Assessment History notes. Pt is G5, P4, 014, POD #11 s/p repeat section and bilateral tubal ligation on , according to Progress notes. Procedure on 05/14: Supracervical abdominal hysterectomy, well tolerated, according to Operative Report notes. Percent of energy/protein needs met: Prescribed Regular Diet provides for energy/protein needs (2,289 Kcal/89 g) during LOS. Burn Absent Trauma Absent GI Symptoms None Food Allergy No Skin Integrity/Comment Abdominal surgical wound. Current % PO Good (75-100%) Minimum of two criteria No Fluid Accumulation N/A Reduced Track Watchman Strength N/A (non-severe) Protein-Calorie Malnutrition N\A #1 Nutrition Diagnosis Increased nutrient needs ( specify in comment below) Comments: Protein to support wound healing processes. Etiology Vaginal Bleeding, uterin atony . As Evidenced by Signs and Symptoms Hysterectomy. Is patient on ventilator? No Is Patient Ambulatory and/or Out of Bed Yes REE-([place]-ambulatory/OOB) [ 1814.410 NUTR.[id number]] Kcal/Kg value to use for calculation 20 Approximate Energy Requirements Using 1533 kcal/Kg Calculation Used for Recommendations Kcal/kg Additional Notes Protein: 1.5-2 g/Kg ABW; 116- 154 g/day. Fluids: 1 ml/Kcal, or as per MD. Nutrition Intervention Change Diet Order: Continue Regular Diet. Goal #1 Adjust the dietary intervention to better serve Pt's needs and clinical conditions during LOS. Follow-Up By: 05/26/22 Additional Comments Continue monitoring food tolerance, %PO intake of meals , and BM.
[2022-05-20 13:03] VITALS: BP 121/76
== END 2022-05-20 13:00 | disposition home or self-care (01) | DRG 988 ==
LOC: ED 09:32 → CC1 17:36 → IMCU 05-15 15:25 → OB 05-16 14:04
PROVIDERS: ADMIT Obstetrics & Gynecology; ATTEND Obstetrics & Gynecology
PROC: 0UT90ZL Resection of Uterus, Supracervical, Open Approach (ICD-10-PCS; principal; 2022-05-14)
PROC: 30233N1 Transfusion of Nonautologous Red Blood Cells into Peripheral Vein, Percutaneous Approach (ICD-10-PCS; 2022-05-14)
PROC: 30233K1 Transfusion of Nonautologous Frozen Plasma into Peripheral Vein, Percutaneous Approach (ICD-10-PCS; 2022-05-14)
DX: O72.1 Other immediate postpartum hemorrhage (principal); D62 Acute posthemorrhagic anemia; I42.9 Cardiomyopathy, unspecified; D68.9 Coagulation defect, unspecified; O99.43 Diseases of the circulatory system complicating the puerperium; O86.4 Pyrexia of unknown origin following delivery; I95.9 Hypotension, unspecified; M32.9 Systemic lupus erythematosus, unspecified; O90.81 Anemia of the puerperium; Z20.822 Contact with and (suspected) exposure to COVID-19; Z90.49 Acquired absence of other specified parts of digestive tract; Z82.49 Family history of ischemic heart disease and other diseases of the circulatory system; O90.89 Other complications of the puerperium, not elsewhere classified
CPT/HCPCS: 36415; 71045; 74174; 76856; 80048; 81001; 82962; 84702; 85014; 85018; 85025; 85027; 85384; 85610; 85730; 86850; 86900; 86901; 86920; 87040; 87086; 88304; 88307; 93306; G0378; J3490; C1765; C8929; J0295; J0690; J1100; J1170; J2250; J2270; J2370; J2405; J2704; J3010; J7030; J7040; J7120; P9016; P9017; P9045; Q9967; Q9968; U0003